=== PATIENT | male | born 1935 | race Caucasian/White ===

== ENCOUNTER → 2017-04-30 06:20 | Outpatient (CLI) | payer MEDICARE, SELFPAY ==
--- NOTE | 2017-04-30 09:31 | STRESSREP ---
Stress Test Report Pharmacologic myocardial perfusion stress test. 82-year-old man with a history of atrial fibrillation. Stress protocol: Resting EKG demonstrates atrial fibrillation with a junctional rhythm rate of 53 bpm. Right bundle branch block is noted. Resting blood pressure is 122/72 minute meters of mercury. 0.4 mg of regadenoson was infused per usual protocol followed by rapid intravenous saline flush injection continuous EKG monitoring was performed the maximum heart rate attained was 67 bpm which was 48% of the maximum predicted heart rate the maximum workload attained was 1 metabolic equivalent. At rest there were no ST or T-wave changes noted suggest abnormal flow reserve at peak infusion no ST or T-wave changes were noted suggest abnormal flow reserve. Patient maintained the right bundle branch block throughout the infusion should. Resting blood pressure is 122/72 final blood pressure 124/60. Myocardial perfusion protocol. 14.5 mCi of technetium 99m sestamibi was injected at rest. 0.4 mg regadenoson was infused per usual protocol peak infusion 44.9 mCi of technetium 99m sestamibi was injected. Stress images were obtained. Stress and rest images were reconstructed and compared in the short axis vertical long and horizontal long axis. Gated images were also obtained pre- Perfusion SPECT analysis: Review of the stress images demonstrate normal uptake of tracer noted in all areas of the myocardium. The resting images also demonstrate normal uptake of tracer noted in all areas of the myocardium. No areas of reversibility are noted suggest ischemia no previous infarct is noted. Gated SPECT analysis: The gated ejection fraction is noted to be 57%. Conclusion: Normal pharmacologic myocardial perfusion stress test. Atrial fibrillation noted with a right bundle branch block. Preserved ejection fraction.
--- NOTE | 2017-04-30 10:00 | CDU_ITS ---
Reason For Study: Carotid bruit Rt. Velocities/BP Lt. Velocities/BP Prox CCA 70.9/11.7 cm/sec. Prox CCA 63.9/11.1 cm/sec. Mid CCA 65.7/16.4 cm/sec. Mid CCA 59.8/14.7 cm/sec. Dist CCA 59.8/13.5 cm/sec. Dist CCA 64.5/15.2 cm/sec. Prox ICA 43.4/9.4 cm/sec. Prox ICA 71.5/12.3 cm/sec. Mid ICA 53.4/14.1 cm/sec. Mid ICA 75.6/17.0 cm/sec. Dist ICA 57.5/14.7 cm/sec. Dist ICA 86.2/18.2 cm/sec. Rt. ICA/CCA = .88. Lt. ICA/CCA = 1.4. Prox ECA 56.3/9.4 cm/sec. Prox ECA 59.8/8.2 cm/sec. Rt. Vert. 38.1/12.3 cm/sec. Lt. Vert. 38.7/11.1 cm/sec. Right Extracranial There is intimal thickening but no significant atherosclerotic plaque noted in the right common carotid artery. There is heterogeneous, irregular atherosclerotic plaque noted in the right internal carotid artery. There is heterogeneous, irregular atherosclerotic plaque noted in the right external carotid artery. Antegrade flow is noted in the right vertebral artery. Left Extracranial There is no significant atherosclerotic plaque noted in the left common carotid artery. There is heterogeneous, irregular atherosclerotic plaque noted in the left internal carotid artery. There is no significant atherosclerotic plaque noted in the left external carotid artery. Antegrade flow is noted in the left vertebral artery. Procedure Carotid Duplex [id number]. Exam performed in department. Interpretation Summary Mild (<50%) stenosis right extracranial internal carotid. Mild (<50%) stenosis left extracranial internal carotid. Flow within the vertebral arteries is antegrade bilaterally. Ordering Physician: Kendra Xiao Referring Physician: Kayleen Meyer M.D. Performed By: Meghann Olvera RVT
== END ==
PROVIDERS: Family Provider Family Medicine; PCP Family Medicine; Visit Provider Physician Assistant Medical
DX: I48.91 Unspecified atrial fibrillation (principal); I45.10 Unspecified right bundle-branch block; R09.89 Other specified symptoms and signs involving the circulatory and respiratory systems; I65.23 Occlusion and stenosis of bilateral carotid arteries; R07.9 Chest pain, unspecified
CPT/HCPCS: 78452; 93017; 93880; A9500; A4216; J2785

== ENCOUNTER → 2017-05-11 15:14 | Outpatient (CLI) | payer MEDICARE, SELFPAY ==
[2017-04-11 10:44] VITALS: BP 128/76; BMI 28.4
[2017-05-11 17:46] LABS: Hemoglobin A1c 6.5 % (4.2-6.3)
[2017-05-11 17:53] LABS: AST(SGOT) 24 U/L (15-37); Alanine Aminotransfer ALT/SGPT 27 U/L (16-61); Albumin, Serum 3.6 g/dL (3.2-5.0); Alkaline Phosphatase 92 U/L (45-117); Anion Gap 9 (5-15); BUN 24 mg/dL (7-18); BUN/Creat Ratio 22.4 RATIO (10-20); Calcium,Total 8.7 mg/dL (8.5-10.1); Chloride 109 mmol/L (98-107); Cholesterol 100 mg/dL (200); Creatinine, Serum 1.07 mg/dL (0.70-1.30); EST Glomerular Filtration Rate 70 mL/min (>60); Est Glom Filt Rate - Afr Amer 85 mL/min (>60); Globulin 3.8 g/dL (2.2-4.2); Glucose 73 mg/dL (74-106); High Density Lipoprotein 27 mg/dL; Potassium 3.3 mmol/L (3.5-5.1); Protein, Total 7.4 g/dL (6.4-8.2); Sodium Level 145 mmol/L (136-145); Triglycerides 108 mg/dL; Very Low Density Lipoprotein 22 mg/dL (5-40)
[2017-05-11 17:59] LABS: Microalbumin,Random Urine 19.8 mg/L (NO RANGE EST.)
== END ==
PROVIDERS: Family Provider Family Medicine; PCP Family Medicine; Visit Provider Family Medicine
DX: I10 Essential (primary) hypertension (principal); E11.9 Type 2 diabetes mellitus without complications
CPT/HCPCS: 36415; 80048; 80061; 80076; 82043; 82570; 83036

== ENCOUNTER → 2017-08-20 13:02 | Outpatient (CLI) | payer MEDICARE, SELFPAY ==
[2017-08-20 14:07] LABS: Absolute Lymphocyte Count 0.88 X10^3/ul (0.83-4.51); Absolute Neutrophil Count 4.5 X10^3/uL (2.0-7.7); Basophil# 0.02 X10^3/uL; Basophil% 0.3 % (0-1); Eosinophil# 0.26 X10^3/uL; Eosinophils% 4.2 % (0-5); Hematocrit 35.9 % (40-54); Lymphocyte # 0.88 X10^3/ul (4.0); Lymphocyte % 14.3 % (19-41); Mean Corp Hgb Conc 33.4 g/gl (32-36); Mean Corpuscular Hgb 30.7 pg (27.0-32.0); Mean Corpuscular Volume 91.8 fL (80-94); Mean Platelet Vol. 12.4 fl (6.2-12.0); Monocyte% 8.1 % (0-10); Neutrophil # 4.47 X10^3/uL (2.7-7.7); Neutrophil % 72.9 % (47-70); Platelet Count 132 K/mm3 (150-450); RBC Distribution Width CV 17.8 % (11.6-14.6); RBC Distribution Width SD 57.9 fl (35.1-43.9); Red Blood Count 3.91 M/mm3 (4.6-6.2); White Blood Count 6.1 K/mm3 (4.4-11.0)
[2017-08-20 14:10] LABS: POSITIVE COUNT NO; POSITIVE DIFFERENTIAL NO; POSITIVE MORPHOLOGY NO
== END ==
PROVIDERS: Family Provider Family Medicine; PCP Family Medicine; Visit Provider Internal Medicine Rheumatology
DX: D64.9 Anemia, unspecified (principal)
CPT/HCPCS: 36415; 85025

== ENCOUNTER → 2017-09-04 09:43 | Outpatient (CLI) | payer MEDICARE, SELFPAY ==
--- NOTE | 2017-09-04 09:43 | DT_ITS ---
This patient was seen during an EMR downtime September 03, 2017 - September 10, 2017. This patient may have a combination of paper and electronic documentation or all paper documentation. All documentation is viewable within the e-chart portion of [facility] for each patient visit.
[2017-09-10 17:02] LABS: Absolute Lymphocyte Count 0.66 X10^3/ul (0.83-4.51); Absolute Neutrophil Count 5.8 X10^3/uL (2.0-7.7); Basophil% 0.3 % (0-1); Eosinophils% 3.2 % (0-5); Hematocrit 36.8 % (40-54); Hemoglobin 11.9 g/dl (13.0-16.5); Lymphocyte # 0.66 X10^3/ul (4.0); Lymphocyte % 9.5 % (19-41); Mean Corp Hgb Conc 32.3 g/gl (32-36); Mean Corpuscular Hgb 30.2 pg (27.0-32.0); Mean Corpuscular Volume 93.4 fL (80-94); Mean Platelet Vol. 11.8 fl (6.2-12.0); Monocyte% 4.3 % (0-10); Neutrophil # 5.75 X10^3/uL (2.7-7.7); Neutrophil % 82.3 % (47-70); POSITIVE COUNT NO; POSITIVE DIFFERENTIAL NO; POSITIVE MORPHOLOGY NO; Platelet Count 139 K/mm3 (150-450); RBC Distribution Width CV 18.3 % (11.6-14.6); RBC Distribution Width SD 59.8 fl (35.1-43.9); Red Blood Count 3.94 M/mm3 (4.6-6.2)
== END ==
PROVIDERS: Family Provider Family Medicine; PCP Family Medicine; Visit Provider Internal Medicine Rheumatology
DX: D69.6 Thrombocytopenia, unspecified (principal)
CPT/HCPCS: 36415; 85025

== ENCOUNTER 2017-10-20 01:14 | Inpatient (IN) | payer MEDICARE, SELFPAY ==
[2017-10-20] VITALS (20 sets, daily range): BP systolic 101–171; BP diastolic 46–68; PULSE 62–88; RESP 18–32; TEMP 36.9–37.9; O2SAT 92–94; BMI 27.0; BMI 26.2
--- NOTE | 2017-10-20 01:32 | RAD_ITS ---
STUDY: X-RAY CHEST REASON FOR EXAM: Male, 82 years old. Cough, shortness of breath and chills since yesterday. TECHNIQUE: PA and lateral views of the chest. COMPARISON: October 20, 2017. FINDINGS: Cardiac monitoring leads are present. The lungs are expanded. There is right basilar airspace consolidation likely representing pneumonia. There is also heterogeneous left basilar airspace consolidation likely representing pneumonia. Bronchovascular markings are mildly prominent in both lungs, greatest at the lung bases. This suggests the possibility of bronchiectasis. There may be small bilateral pleural effusions. There is mild cardiac enlargement. There are calcified mediastinal and hilar lymph nodes. There is prominence of the pulmonary hilar arteries without peripheral pulmonary vascular congestion. There is atherosclerotic calcification of the aortic arch with tortuosity. There are diffuse degenerative changes of the visualized thoracic spine. The bones appear osteopenic. There is decreased height of several thoracic vertebral body suggesting sequela of compression fractures. There are degenerative changes of both shoulders. There is no demonstrated abnormality of the visualized soft tissue structures of the upper abdomen. RAD/Chest PA and Lateral IMPRESSION: 1. Bilateral basilar airspace consolidation, right larger left, likely representing pneumonia. 2. There may be component of bronchiectasis at the lung bases. Electronically Signed: Divine Luo MD at 2:56 EDT , Service support ,
--- NOTE | 2017-10-20 01:32 | EKG12_ITS ---
Test Reason : COUGH Blood Pressure : / mmHG Vent. Rate : 081 BPM Atrial Rate : 097 BPM P-R Int : 000 ms QRS Dur : 166 ms QT Int : 442 ms P-R-T Axes : 000 -37 000 degrees QTc Int : 513 ms Atrial fibrillation Left axis deviation Right bundle branch block Abnormal ECG Confirmed by AARON RODRIGUEZ ([id number]), editor news CAROLYNN CALLEJAS ([id number]) on 10/23/2017 1:32:34 PM Referred By: CATRACHO Confirmed By:AARON RODRIGUEZ
[2017-10-20 01:50] LABS: Absolute Lymphocyte Count 0.79 X10^3/ul (0.83-4.51); Absolute Neutrophil Count 7.1 X10^3/uL (2.0-7.7); Basophil# 0.01 X10^3/uL; Basophil% 0.1 % (0-1); Eosinophil# 0.25 X10^3/uL; Hematocrit 32.8 % (40-54); Hemoglobin 10.9 g/dl (13.0-16.5); Lymphocyte # 0.79 X10^3/ul (4.0); Lymphocyte % 9.6 % (19-41); Mean Corp Hgb Conc 33.2 g/gl (32-36); Mean Corpuscular Hgb 30.2 pg (27.0-32.0); Mean Corpuscular Volume 90.9 fL (80-94); Monocyte# 0.06 X10^3/uL; Monocyte% 0.7 % (0-10); Neutrophil # 7.12 X10^3/uL (2.7-7.7); Neutrophil % 86.5 % (47-70); POSITIVE COUNT NO; POSITIVE DIFFERENTIAL NO; POSITIVE MORPHOLOGY NO; Platelet Count 140 K/mm3 (150-450); RBC Distribution Width CV 17.8 % (11.6-14.6); RBC Distribution Width SD 58.7 fl (35.1-43.9); Red Blood Count 3.61 M/mm3 (4.6-6.2); White Blood Count 8.2 K/mm3 (4.4-11.0)
[2017-10-20] MEDS: Acetaminophen 325 MG Tablet 650 MG PO (01:50)
--- NOTE | 2017-10-20 01:51 | ED.VISSUMM ---
- ER Visit Summary Date of Service: 10/20/17 Chief Complaint: [] Cough History of Present Illness: The patient is a 82 M presents with cough for last 2 days gradual onset intermittent. Occasionally is productive only in the morning. He has occasional chills. Denies any other symptoms. He is not short of breath. He had a cough fit tonight that brought him in. He has had remote aspiration pneumonia. His temperature was 101 time at home. No home treatment. No history of COPD. He is on Coumadin for history of atrial fibrillation. Physical Examination: Vital signs reviewed are temperature 100.3 General: Well-nourished well-developed Head: Normocephalic atraumatic Eyes: Pupils equal round and reactive to light extraocular movements intact ENT: TMs clear no hemotympanum no trauma Neck: Nontender full range of motion Cardiovascular: Regular rate with irregular rhythm no murmurs normal S1-S2 Respiratory: No distress clear to auscultation bilaterally chest nontender Abdomen: Soft nontender nondistended normal bowel sounds no masses Back: Nontender no CVA tenderness Extremities: Nontender active range of motion ?4 extremities no trauma Skin: Normal color no trauma Neuro alert oriented cranial nerves II through XII intact normal strength sensation reflexes Test Results: [] Emergency Department Course and Treatment: [] Patient given oral Tylenol. Lab work chest x-ray and EKG obtained. Lab work shows no significant white count. Hemoglobin 10.9 which is chronic. Positive left shift with the neutrophils 86. Chemistries normal except chloride 108. BUN 23. Troponin is chronically elevated 0.09. Chest x-ray shows a lobar right lower lobe infiltrate. Patient was started on antibiotics and admitted for further evaluation and treatment. I do not think he has severe sepsis or septic shock. Treatment Plan: [] Disposition: [] Impression: [] Community acquired pneumonia Sepsis syndrome This note was generated with [employer] dictation software. It may contain incorrect words, spelling, and punctuation that were not noted in review of the chart prior to signing ED Disposition - Plan for ED Patient: Chief Complaint: Cough Referrals: Kayleen Meyer MD [Primary Care Provider] -
[2017-10-20 01:56] LABS: International Normalized Ratio 2.5; Prothrombin Time (Protime)PT. 26.7 SECONDS (11.7-14.9)
[2017-10-20 02:06] LABS: Anion Gap 6 (5-15); BUN 23 mg/dL (7-18); BUN/Creat Ratio 21.9 RATIO (10-20); Calcium,Total 8.6 mg/dL (8.5-10.1); Chloride 108 mmol/L (98-107); Creatinine, Serum 1.05 mg/dL (0.70-1.30); EST Glomerular Filtration Rate 72 mL/min (>60); Est Glom Filt Rate - Afr Amer 87 mL/min (>60); Estimated Creatinine Clearance 58.51 ml/min; Glucose 263 mg/dL (74-106); Potassium 3.5 mmol/L (3.5-5.1); Sodium Level 141 mmol/L (136-145)
[2017-10-20] MEDS: levoFLOXacin IV 750 MG/150 ML BAG 100 MG IV (02:44)
--- NOTE | 2017-10-20 03:05 | HP.PCM_ITS ---
Problem List (1) CAP (community acquired pneumonia) Status: Acute (2) TIA (transient ischemic attack) Status: Chronic (3) Chronic atrial fibrillation Status: Chronic (4) Benign hypertension Status: Chronic (5) Type II diabetes mellitus Status: Chronic History of Present Illness Date of Admission: 10/20/17 Chief Complaint: CAP The patient is a 82 year old male w/ h/o chronic afib, HTN, DMII, and TIA admitted for CAP. He has been coughing for the past 2-3 days. He has a productive cough. The intensity and frequency of his cough worsened. Nothing appeared to make his cough better or worse. He also has subjective fever / chill. He has been SOB for the past 1 day. SOB is severe and interfered with his ADLs. Past Medical History Past Medical History (Chronic Problems): Chronic Problems (Last Reviewed 09/13/17 @ 11:23 by Aaron Regalado MD) TIA (transient ischemic attack) (Chronic) Rheumatoid arthritis (Chronic) Chronic atrial fibrillation (Chronic) Benign hypertension (Chronic) Type II diabetes mellitus (Chronic) Medical History: Medical History (Last Reviewed 10/20/17 @ 02:57 by Sagar Simpson MD) TIA (transient ischemic attack) (Chronic) G45.9 Rheumatoid arthritis (Chronic) M06.9 Chronic atrial fibrillation (Chronic) I48.2 Benign hypertension (Chronic) I10 Type II diabetes mellitus (Chronic) E11.9 Allergies No Known Allergies Allergy (Verified 10/20/17 01:16) Home Medications: Ambulatory Orders Medication Instructions Recorded Aspirin [Aspirin, Baby] 81 mg PO DAILY 12/31/12 Hydrochlorothiazide 25 mg PO DAILY 12/31/12 Metoprolol Tartrate [Lopressor 50 mg PO BID 12/31/12 (beta judy)] Tamsulosin HCl [Flomax] 0.4 mg PO DAILY 12/31/12 Warfarin Sodium [Coumadin] 3 mg PO DAILY 12/31/12 Amlodipine [Norvasc] 10 mg PO DAILY 09/16/16 Folic Acid 1 mg PO DAILY 09/16/16 Methotrexate 5 tab PO [place] 09/16/16 Lisinopril [Zestril] 40 mg PO DAILY #30 tab 09/20/16 potassium chloride ER 20 mEq 20 meq PO DAILY 90 Days #270 04/11/17 tablet,extended release(part/cryst) furosemide 40 mg tablet 40 mg PO DAILY #90 tab 10/11/17 Glimepiride [Amaryl] 2 mg PO DAILY 10/20/17 Lactobacillus Acidophilus 1 tablet PO DAILY 10/20/17 [Acidophilus] Surgical History: Surgical History (Last Reviewed 10/20/17 @ 02:57 by Sagar Simpson MD) History of knee replacement (Resolved) Z96.659 Hx of hernia repair (Resolved) Z98.890, Z87.19 History of cholecystectomy Onset Date: ~05/2012 Z98.890, Z90.49 Surgical History: cholecystectomy, herniorrhaphy Psychiatric History: No pertinent psych hx Lives: Spouse/ Significant Other Smoking Status: Never smoker Alcohol: None Drugs: None - *Family History Maternal History Items: No pertinent history Paternal History Items: No pertinent history Review of Systems Constitutional: Denies: Chills, Fever, Weight Change Eyes: Denies: Cataracts, Drainage HEENT: Denies: Head Aches, Sinus Congestion, Sinus Drainage Cardiovascular: Denies: Chest Pain, Palpitations Respiratory: Reports: Cough, Sputum production, Wheezing. Denies: Shortness of breath at rest Gastrointestinal: Denies: Abdominal Pain, Nausea, Vomiting Genitourinary: Denies: Dysuria Musculoskeletal: Denies: Joint Pain, Joint Tenderness Skin: Denies: Rash, Wounds Neurological: Denies: Numbness, Tingling, Focal weakness Psychiatric: Denies: Anxiety, Depression, Homicidal Ideations, Suicidal Ideations Hematologic/ Lymphatic: Denies: Easy Bruising, Easy Bleeding VTE Information - Inpt Only VTE Present on Admission: No VTE Mechan Device Prophylaxis: SCD's VTE Pharm Prophylaxis ordered?: Yes Patient Problems: Active and Suspected Problems (Last Reviewed 09/13/17 @ 11:23 by Aaron Regalado MD ) CAP (community acquired pneumonia) (Acute) - Physical Exam General: Alert, Oriented x3, Cooperative HEENT: Atraumatic, PERRLA, EOMI, Normocephalic Neck: Supple, No JVD, Negative Carotid Bruits Lungs: Diminished, Short of Breath, Wheezes Cardiovascular: Regular rate, No murmurs Abdomen: Bowel Sounds Present, Soft, Non Tender Extremities: No edema, Capillary Refill Less than 3 Seconds Skin: No rashes, No breakdown Musculoskeletal: No Tenderness to Palpation of Joints or Extremities Neurological: Cranial nerves II-XII grossly intact Psych/Mental Status: Normal Affect, Appropriate Vital Signs Temp Pulse Resp BP Pulse Ox 99.9 F H 80 23 H 128/68 H 93 10/20/17 02:46 10/20/17 02:46 10/20/17 02:46 10/20/17 02:46 10/20/17 02:46 Oxygen Delivery Method Room Air Weight: 90.5 kg Body Mass Index (BMI) 27.0 Laboratory Tests Past 24 Hrs 10/20/17 10/20/17 10/20/17 01:35 01:35 01:35 WBC 8.2 RBC 3.61 L Hgb 10.9 L Hct 32.8 L MCV 90.9 MCH 30.2 MCHC 33.2 RDW 17.8 H RDW Differential 58.7 H Plt Count 140 L MPV 11.0 Immature Gran % (Auto) 0.100 Neut % (Auto) 86.5 H Lymph % (Auto) 9.6 L [place] % (Auto) 0.7 Eos % (Auto) 3.0 Baso % (Auto) 0.1 Absolute Neuts (auto) 7.1 Absolute Lymphs (auto) 0.79 L Total Counted Not Reportable PT 26.7 H INR 2.5 Sodium 141 Potassium 3.5 Chloride 108 H Carbon Dioxide 27.0 Anion Gap 6 BUN 23 H Creatinine 1.05 Estim Creat Clear Calc 58.51 Est GFR (MDRD) Af Amer 87 Est GFR (MDRD) Non-Af 72 BUN/Creatinine Ratio 21.9 H Glucose 263 H Calcium 8.6 Troponin I 0.093 H Assessment/Plan All Active Problems (Last Reviewed 09/13/17 @ 11:23 by Aaron Regalado MD) CAP (community acquired pneumonia) (Acute) History of knee replacement (Resolved) Hx of hernia repair (Resolved) Aspiration pneumonia (Resolved) Altered mental status (Resolved) 82 year old male w/ h/o chronic afib, HTN, DMII, and TIA admitted for CAP. 1) CAP: Chest xray disclosed right lower lobe infiltrate. Will start ceftriaxone and azithromycin. Cultures pending. 2) Elevated trops: Probably secondary to underlying sepsis. Serial labs. Monitor. 3) Chronic afib: Resume home meds. Monitor. 4) Prophylaxis: SCD / coumadin.
--- NOTE | 2017-10-20 03:30 | NURSING ---
Called ED veterinary virus serum inspector, LeAnn at this time to confirm Pt okay to come to PCU.
[2017-10-20] MEDS: 0.9% Normal Saline 1,000 ML 100 ML IV ×2 (04:21→15:48)
[2017-10-20] MEDS: Ceftriaxone 1 GM/50 ML BAG IV (04:38)
[2017-10-20 05:10] LABS: Absolute Lymphocyte Count 0.61 X10^3/ul (0.83-4.51); Absolute Neutrophil Count 7.2 X10^3/uL (2.0-7.7); Basophil# 0.02 X10^3/uL; Basophil% 0.2 % (0-1); Eosinophil# 0.23 X10^3/uL; Eosinophils% 2.7 % (0-5); Hematocrit 30.2 % (40-54); Hemoglobin 10.2 g/dl (13.0-16.5); Lymphocyte # 0.61 X10^3/ul (4.0); Lymphocyte % 7.1 % (19-41); Mean Corp Hgb Conc 33.8 g/gl (32-36); Mean Corpuscular Hgb 31.1 pg (27.0-32.0); Mean Corpuscular Volume 92.1 fL (80-94); Mean Platelet Vol. 11.2 fl (6.2-12.0); Monocyte# 0.47 X10^3/uL; Monocyte% 5.5 % (0-10); Neutrophil % 84.4 % (47-70); Platelet Count 126 K/mm3 (150-450); RBC Distribution Width CV 17.6 % (11.6-14.6); RBC Distribution Width SD 57.2 fl (35.1-43.9); Red Blood Count 3.28 M/mm3 (4.6-6.2); White Blood Count 8.5 K/mm3 (4.4-11.0)
[2017-10-20 05:22] LABS: POSITIVE COUNT NO; POSITIVE DIFFERENTIAL NO
[2017-10-20 05:37] LABS: Anion Gap 8 (5-15); BUN 21 mg/dL (7-18); BUN/Creat Ratio 20.2 RATIO (10-20); Calcium,Total 8.2 mg/dL (8.5-10.1); Chloride 109 mmol/L (98-107); Creatinine, Serum 1.04 mg/dL (0.70-1.30); EST Glomerular Filtration Rate 72 mL/min (>60); Est Glom Filt Rate - Afr Amer 88 mL/min (>60); Estimated Creatinine Clearance 59.07 ml/min; Glucose 229 mg/dL (74-106); Potassium 3.4 mmol/L (3.5-5.1); Sodium Level 142 mmol/L (136-145)
[2017-10-20] MEDS: Ipratropium/Albuterol Sulfate 3 ML AMPUL.NEB INHALATION ×3 (06:45→20:16)
[2017-10-20 07:05] LABS: Color, Urine Yellow (Yellow); Glucose, Dipstick 250 mg/dl (Normal); Ketone-Dipstick Negative (Negative); Leukocyte Esterase-Dipstick Negative /ul (Negative); Nitrite-Dipstick Negative (Negative); Occult Blood-Urine Negative /ul (Negative); Protein-Dipstick 15 mg/dl (Negative); Urine Bilirubin Dipstick Negative (Negative); Urine Clarity Clear (Clear); Urine Urobilinogen 1 mg/dl (Normal); Urine pH 6.5 (5.0 - 8.0)
[2017-10-20] MEDS: Aspirin 81 MG TAB.CHEW PO (07:27)
[2017-10-20] MEDS: Glimepiride 2 MG Tablet PO (07:27)
[2017-10-20] MEDS: Folic Acid 1 MG Tablet PO (07:27)
[2017-10-20] MEDS: Tamsulosin HCl 0.4 MG Capsule PO (08:21)
[2017-10-20] MEDS: Lisinopril 40 MG Tablet PO (08:21)
[2017-10-20] MEDS: hydroCHLOROthiazide 25 MG Tablet PO (08:21)
[2017-10-20] MEDS: amLODIPine 10 MG Tablet PO (08:21)
[2017-10-20] MEDS: Metoprolol Tartrate 50 MG Tablet PO ×2 (08:22→22:12)
--- NOTE | 2017-10-20 11:35 | CASEMGMT ---
See RN CM Assessment Link. DC Plan: Home. -Pt states he is independent, drives, does not use DME @ home. No needs identified. Elmer WOODALLN RN ACM
--- NOTE | 2017-10-20 15:03 | PN_ITS ---
<Christina Jones - Last Filed: 10/20/17 15:03> Patient Problems: Active and Suspected Problems (Last Reviewed 10/20/17 @ 02:57 by Sagar Simpson MD) CAP (community acquired pneumonia) (Acute) Subjective: Patient seen and examined. Resting comfortably in bed. No acute distress. Complains of fever, chills overnight. Intermittent productive cough with white sputum. Shortness of breath improving. - Physical Exam General: Alert, Oriented x3, Cooperative, No apparent distress HEENT: Atraumatic, PERRLA, EOMI, Normocephalic Oral: Moist Mucosa Neck: Supple, No JVD, Negative Carotid Bruits Lungs: Diminished, Wheezes Cardiovascular: Regular rate, Regular Rhythm, Normal S1, Normal S2, No murmurs Abdomen: Bowel Sounds Present, Soft, Non Tender, Non-Distended Extremities: No clubbing, No cyanosis, No edema, Capillary Refill Less than 3 Seconds Skin: No rashes, No breakdown Musculoskeletal: No Tenderness to Palpation of Joints or Extremities Neurological: Cranial nerves II-XII grossly intact, Neuro grossly intact Psych/Mental Status: Normal Affect, Appropriate Vital Signs Temp Pulse Resp BP Pulse Ox 98.4 F 68 20 H 115/46 L 94 10/20/17 09:50 10/20/17 13:12 10/20/17 13:12 10/20/17 09:50 10/20/17 09:50 Oxygen Delivery Method Room Air Weight: 193 lb 5.526 oz Body Mass Index (BMI) 26.2 Intake and Output for Last 24 Hours 10/18/17 10/19/17 10/20/17 23:59 23:59 23:59 Intake Total 1268 / 1268 Balance 1268 / 1268 Microbiology Past 72 Hours 10/20/17 06:10 Legionella Antigen - Final Urine, Random 10/20/17 06:10 Streptococcus pneumoniae Antigen (M - Final Interface Orders 10/20/17 04:55 Influenza Types A,B Direct FA (DANAE) - Final Mucosa - Nasopharyngeal Laboratory Tests Past 24 Hrs 10/20/17 10/20/17 10/20/17 04:50 04:50 04:50 WBC 8.5 RBC 3.28 L Hgb 10.2 L Hct 30.2 L MCV 92.1 MCH 31.1 MCHC 33.8 RDW 17.6 H RDW Differential 57.2 H Plt Count 126 L MPV 11.2 Immature Gran % (Auto) 0.100 Neut % (Auto) 84.4 H Lymph % (Auto) 7.1 L [place] % (Auto) 5.5 Eos % (Auto) 2.7 Baso % (Auto) 0.2 Absolute Neuts (auto) 7.2 Absolute Lymphs (auto) 0.61 L Total Counted Not Reportable Sodium 142 Potassium 3.4 L Chloride 109 H Carbon Dioxide 25.0 Anion Gap 8 BUN 21 H Creatinine 1.04 Estim Creat Clear Calc 59.07 Est GFR (MDRD) Af Amer 88 Est GFR (MDRD) Non-Af 72 BUN/Creatinine Ratio 20.2 H Glucose 229 H Calcium 8.2 L Troponin I 0.092 H Urine Color Urine Clarity Urine pH Ur Specific [place] Urine Protein Urine Glucose (UA) Urine Ketones Urine Occult Blood Urine Nitrite Urine Bilirubin Urine Urobilinogen Ur Leukocyte Esterase 10/20/17 10/20/17 06:10 07:50 WBC RBC Hgb Hct MCV MCH MCHC RDW RDW Differential Plt Count MPV Immature Gran % (Auto) Neut % (Auto) Lymph % (Auto) [place] % (Auto) Eos % (Auto) Baso % (Auto) Absolute Neuts (auto) Absolute Lymphs (auto) Total Counted Sodium Potassium Chloride Carbon Dioxide Anion Gap BUN Creatinine Estim Creat Clear Calc Est GFR (MDRD) Af Amer Est GFR (MDRD) Non-Af BUN/Creatinine Ratio Glucose Calcium Troponin I 0.098 H Urine Color Yellow Urine Clarity Clear Urine pH 6.5 Ur Specific [place] 1.010 Urine Protein 15 H Urine Glucose (UA) 250 H Urine Ketones Negative Urine Occult Blood Negative Urine Nitrite Negative Urine Bilirubin Negative Urine Urobilinogen 1 H Ur Leukocyte Esterase Negative Medical Necessity - Tobacco Use Smoking Status: Never smoker Assessment/Plan All Active Problems (Last Reviewed 10/20/17 @ 02:57 by Sagar Simpson MD) CAP (community acquired pneumonia) (Acute) History of knee replacement (Resolved) Hx of hernia repair (Resolved) Aspiration pneumonia (Resolved) Altered mental status (Resolved) 1. Acute community-acquired right lower lobe pneumonia-chest x-ray on admission demonstrated right lower lobe pneumonia. Urine negative for strep and Legionella. Patient has not been found to be hypoxic. Send sputum for culture. Blood cultures pending. Continue albuterol and DuoNeb aerosol. Continue IV Rocephin and azithromycin. 2. Elevated troponin-suspect secondary to #1. Patient denies chest pain. EKG without acute changes. Patient has a history of elevated troponin in the past. Stress test in April without evidence of ischemia. 3. Chronic atrial fibrillation-rate controlled. Continue metoprolol, Coumadin. 4. Hypertension-stable, continue home regimen including hydrochlorothiazide, lisinopril, metoprolol. 5. Type 2 diabetes mellitus-continue home Amaryl regimen. Accu-Cheks before meals at bedtime with sliding scale insulin. 6. History of TIA-continue aspirin. 7. BPH-continue home Flomax regimen. 8. Rheumatoid arthritis-continue home methotrexate regimen. DVT prophylaxis-Coumadin This patient was seen by NIXON Perez under the supervision of Dr. Rodriguez. <Janna Rodriguez - Last Filed: 10/20/17 17:10> - Physical Exam Vital Signs Temp Pulse Resp BP Pulse Ox 98.4 F 68 20 H 115/46 L 94 10/20/17 09:50 10/20/17 13:12 10/20/17 13:12 10/20/17 09:50 10/20/17 09:50 Oxygen Delivery Method Room Air Weight: 87.7 kg Body Mass Index (BMI) 26.2 Intake and Output for Last 24 Hours 10/18/17 10/19/17 10/20/17 23:59 23:59 23:59 Intake Total 1268 / 1268 Balance 1268 / 1268 Microbiology Past 72 Hours 10/20/17 06:10 Legionella Antigen - Final Urine, Random 10/20/17 06:10 Streptococcus pneumoniae Antigen (M - Final Interface Orders 10/20/17 04:55 Influenza Types A,B Direct FA (DANAE) - Final Mucosa - Nasopharyngeal Laboratory Tests Past 24 Hrs 10/20/17 10/20/17 10/20/17 04:50 04:50 04:50 WBC 8.5 RBC 3.28 L Hgb 10.2 L Hct 30.2 L MCV 92.1 MCH 31.1 MCHC 33.8 RDW 17.6 H RDW Differential 57.2 H Plt Count 126 L MPV 11.2 Immature Gran % (Auto) 0.100 Neut % (Auto) 84.4 H Lymph % (Auto) 7.1 L [place] % (Auto) 5.5 Eos % (Auto) 2.7 Baso % (Auto) 0.2 Absolute Neuts (auto) 7.2 Absolute Lymphs (auto) 0.61 L Total Counted Not Reportable Sodium 142 Potassium 3.4 L Chloride 109 H Carbon Dioxide 25.0 Anion Gap 8 BUN 21 H Creatinine 1.04 Estim Creat Clear Calc 59.07 Est GFR (MDRD) Af Amer 88 Est GFR (MDRD) Non-Af 72 BUN/Creatinine Ratio 20.2 H Glucose 229 H Calcium 8.2 L Troponin I 0.092 H Urine Color Urine Clarity Urine pH Ur Specific [place] Urine Protein Urine Glucose (UA) Urine Ketones Urine Occult Blood Urine Nitrite Urine Bilirubin Urine Urobilinogen Ur Leukocyte Esterase 10/20/17 10/20/17 06:10 07:50 WBC RBC Hgb Hct MCV MCH MCHC RDW RDW Differential Plt Count MPV Immature Gran % (Auto) Neut % (Auto) Lymph % (Auto) [place] % (Auto) Eos % (Auto) Baso % (Auto) Absolute Neuts (auto) Absolute Lymphs (auto) Total Counted Sodium Potassium Chloride Carbon Dioxide Anion Gap BUN Creatinine Estim Creat Clear Calc Est GFR (MDRD) Af Amer Est GFR (MDRD) Non-Af BUN/Creatinine Ratio Glucose Calcium Troponin I 0.098 H Urine Color Yellow Urine Clarity Clear Urine pH 6.5 Ur Specific [place] 1.010 Urine Protein 15 H Urine Glucose (UA) 250 H Urine Ketones Negative Urine Occult Blood Negative Urine Nitrite Negative Urine Bilirubin Negative Urine Urobilinogen 1 H Ur Leukocyte Esterase Negative Assessment/Plan Patient was seen and examined independently. I agree with the interval history , physical exam and assessment and plan as documented by nurse practitioner, Christina Jones. Feels improved, still coughing. Not on oxygen. Denies any fever or chills, chest pain or dizziness. Admitted less than 24 hours ago. Vitals are stable, labs are unremarkable except for hypokalemia and elevated troponin, chest x-ray shows pneumonia Physical exam shows bilateral diminished lung sounds, few crackles more on the right lower lung zones\ We will continue with IV ceftriaxone and azithromycin for now, continue to monitor patient Elevated troponins are secondary to demand ischemia, will keep trending troponins x 2 Will replace potassium; already on 20mg po daily. Code Visit Inpatient E&M: 93726 Subs Hosp L2
--- NOTE | 2017-10-20 15:54 | EKG12_ITS ---
Test Reason : CP Blood Pressure : / mmHG Vent. Rate : 066 BPM Atrial Rate : 068 BPM P-R Int : 000 ms QRS Dur : 168 ms QT Int : 484 ms P-R-T Axes : 000 -32 -16 degrees QTc Int : 507 ms Atrial fibrillation with premature ventricular or aberrantly conducted complexes Left axis deviation Right bundle branch block Abnormal ECG Confirmed by SHIVANI BARRETT, ARTHUR ([id number]), sound editor CAROLYNN CALLEJAS ([id number]) on 10/23/2017 2:30:29 PM Referred By: MERARI Confirmed By:ARTHUR PARRISH MD
[2017-10-20 16:38] LABS: Magnesium 1.9 mg/dL (1.6-2.6)
[2017-10-20 16:56] LABS: Bedside Glucose 136 mg/dL (70-110)
[2017-10-20] MEDS: Insulin Lispro 100 UNIT/ML INSULN.PEN SC (22:25)
[2017-10-20 23:16] LABS: Bedside Glucose 154 mg/dL (70-110)
[2017-10-21] VITALS (24 sets, daily range): BP systolic 126–168; BP diastolic 64–114; PULSE 71–104; RESP 17–32; TEMP 36.3–37.1; O2SAT 89–94
[2017-10-21] MEDS: Ipratropium/Albuterol Sulfate 3 ML AMPUL.NEB INHALATION ×4 (00:44→19:20)
[2017-10-21] MEDS: 0.9% Normal Saline 1,000 ML 100 ML IV ×2 (01:47→18:09)
[2017-10-21 06:06] LABS: Hematocrit 31.8 % (40-54); Hemoglobin 10.6 g/dl (13.0-16.5); Mean Corp Hgb Conc 33.3 g/gl (32-36); Mean Corpuscular Hgb 30.5 pg (27.0-32.0); Mean Corpuscular Volume 91.6 fL (80-94); Mean Platelet Vol. 12.1 fl (6.2-12.0); Platelet Count 133 K/mm3 (150-450); RBC Distribution Width CV 17.9 % (11.6-14.6); RBC Distribution Width SD 57.7 fl (35.1-43.9); Red Blood Count 3.47 M/mm3 (4.6-6.2); White Blood Count 7.2 K/mm3 (4.4-11.0)
[2017-10-21 06:09] LABS: International Normalized Ratio 2.6; Prothrombin Time (Protime)PT. 28.1 SECONDS (11.7-14.9)
[2017-10-21 06:11] LABS: Scan Indicated on CBC? Y/N NO
[2017-10-21 06:24] LABS: Anion Gap 7 (5-15); BUN 14 mg/dL (7-18); BUN/Creat Ratio 15.6 RATIO (10-20); Calcium,Total 7.9 mg/dL (8.5-10.1); Chloride 113 mmol/L (98-107); EST Glomerular Filtration Rate 86 mL/min (>60); Est Glom Filt Rate - Afr Amer 104 mL/min (>60); Estimated Creatinine Clearance 68.26 ml/min; Glucose 176 mg/dL (74-106); Potassium 3.6 mmol/L (3.5-5.1); Sodium Level 143 mmol/L (136-145)
[2017-10-21 07:01] LABS: Bedside Glucose 212 mg/dL (70-110)
[2017-10-21] MEDS: Glimepiride 2 MG Tablet PO (08:31)
[2017-10-21] MEDS: Folic Acid 1 MG Tablet PO (08:32)
[2017-10-21] MEDS: Insulin Lispro 100 UNIT/ML INSULN.PEN SC ×4 (08:32→21:53)
[2017-10-21] MEDS: Aspirin 81 MG TAB.CHEW PO (08:32)
--- NOTE | 2017-10-21 10:07 | DCINST_ITS ---
- Discharge Diagnoses Current Active Problems: Current Active and Chronic Problems (Last Reviewed 10/20/17 @ 02:57 by Sagar Simpson MD) CAP (community acquired pneumonia) (Acute) You will use the following diet at home:: Cardiac Discharge Activity: Return to Normal Activity Call your doctor if you observe: Shortness of breath, Dizziness, Fainting spells , Chest pain Allergies/Adverse Reactions: Allergies No Known Allergies Allergy (Verified 10/20/17 03:53) Medications to take at Discharge Aspirin [Aspirin, Baby] 81 mg PO DAILY 12/31/12 Hydrochlorothiazide 25 mg PO DAILY 12/31/12 Metoprolol Tartrate [Lopressor (beta judy)] 50 mg PO BID 12/31/12 Tamsulosin HCl [Flomax] 0.4 mg PO DAILY 12/31/12 Warfarin Sodium [Coumadin] 3 mg PO DAILY 12/31/12 Amlodipine [Norvasc] 10 mg PO DAILY 09/16/16 Folic Acid 1 mg PO DAILY 09/16/16 Methotrexate 5 tab PO [place] 09/16/16 Lisinopril [Zestril] 40 mg PO DAILY #30 tab 09/20/16 potassium chloride ER 20 mEq tablet,extended release(part/cryst) 20 meq PO DAILY 90 Days #270 04/11/17 furosemide 40 mg tablet 40 mg PO DAILY #90 tab 10/11/17 Glimepiride [Amaryl] 2 mg PO DAILY 10/20/17 Lactobacillus Acidophilus [Acidophilus] 1 tablet PO DAILY 10/20/17 Azithromycin 500 mg PO DAILY #3 tab 10/21/17 Cefdinir [Omnicef [equiv]] 300 mg PO Q12H 8 Days #16 cap 10/21/17 The following prescriptions were given: Azithromycin 500 mg PO DAILY #3 tab Cefdinir [Omnicef [equiv]] 300 mg PO Q12H 8 Days #16 cap Primary Care Physician: Kayleen Meyer MD [Primary Care Provider] - Please follow up with your Primary Care Physician in: 1 Week Test Results: Test results from this visit will be discussed in further detail at your follow- up appointment, if applicable. Proposed Discharge Date: 10/21/17
--- NOTE | 2017-10-21 10:09 | PCM.DC.SUM ---
<Christina Jones - Last Filed: 10/21/17 11:04> Discharge Date and Diagnosis Date of Admission: 10/20/17 Date of Discharge: 10/21/17 - Primary Discharge Diagnosis Active and Suspected Problems (Last Reviewed 10/20/17 @ 02:57 by Sagar Simpson MD) 1. Acute community-acquired right lower lobe pneumonia 2. Elevated troponin secondary to demand ischemia - Secondary Discharge Diagnosis Chronic Problems (Last Reviewed 10/20/17 @ 02:57 by Sagar Simpson MD) TIA (transient ischemic attack) (Chronic) Rheumatoid arthritis (Chronic) Chronic atrial fibrillation (Chronic) Benign hypertension (Chronic) Type II diabetes mellitus (Chronic) Hospital Course and Treatment Imaging Results: Diagnostic Data Chest X-Ray 10/20/17 01:32 IMPRESSION: 1. Bilateral basilar airspace consolidation, right larger left, likely representing pneumonia. 2. There may be component of bronchiectasis at the lung bases. Electronically Signed: Divine Luo MD at 2:56 EDT , Service support , Operations: None Procedures: None Summary of Care Provided: Patient is an 82-year-old male admitted 10/20/2017 due to shortness of breath, cough. He has a past medical history of rheumatoid arthritis, chronic atrial fibrillation, hypertension, hyperlipidemia, history of TIA, BPH. 1. Acute community-acquired right lower lobe pneumonia-chest x-ray on admission demonstrated right lower lobe pneumonia. Urine negative for strep and Legionella. Patient has not been found to be hypoxic. Patient will be discharged on azithromycin 500 mg daily to complete 5 days. Cefdinir 300 mg twice daily for 8 days. Follow-up with primary care physician in 1 week. 2. Elevated troponin-suspect demand ischemia secondary to #1. Patient denies chest pain. EKG without acute changes. Patient has a history of elevated troponin in the past. Stress test in April without evidence of ischemia. Patient with frequent PVCs on the monitor. Magnesium 1.9. Received 2 g magnesium ?1. Follow-up with Dr. Regalado or PA within 1 week. 3. Chronic atrial fibrillation-rate controlled. Continue metoprolol, Coumadin. 4. Hypertension-stable, continue home regimen including furosemide, hydrochlorothiazide, lisinopril, metoprolol. 5. Type 2 diabetes mellitus-continue home Amaryl regimen. 6. History of TIA-continue aspirin. 7. BPH-continue home Flomax regimen. 8. Rheumatoid arthritis-continue home methotrexate regimen. General: Alert, Oriented x3, Cooperative, No apparent distress HEENT: Atraumatic, PERRLA, EOMI, Normocephalic Oral: Moist Mucosa Neck: Supple, No JVD, Negative Carotid Bruits Lungs: Diminished, clear to auscultation Cardiovascular: Regular rate, Regular Rhythm, Normal S1, Normal S2, No murmurs Abdomen: Bowel Sounds Present, Soft, Non Tender, Non-Distended Extremities: No clubbing, No cyanosis, No edema, Capillary Refill Less than 3 Seconds Skin: No rashes, No breakdown Musculoskeletal: No Tenderness to Palpation of Joints or Extremities Neurological: Cranial nerves II-XII grossly intact, Neuro grossly intact Psych/Mental Status: Normal Affect, Appropriate Patient seen exam prior to discharge. Physical assessment as noted above. Patient is stable for discharge home with the follow-up recommendations as noted above. This patient was seen by NIXON Perez under the supervision of Dr. Rodriguez. Discharge Diet: Low fat/ Low Cholesterol Discharge Activity: Return to Normal Activity Call your doctor if you observe: Shortness of breath, Dizziness, Fainting spells, Chest pain Home Medications: Medications to take at Discharge Aspirin [Aspirin, Baby] 81 mg PO DAILY 12/31/12 Hydrochlorothiazide 25 mg PO DAILY 12/31/12 Metoprolol Tartrate [Lopressor (beta judy)] 50 mg PO BID 12/31/12 Tamsulosin HCl [Flomax] 0.4 mg PO DAILY 12/31/12 Warfarin Sodium [Coumadin] 3 mg PO DAILY 12/31/12 Amlodipine [Norvasc] 10 mg PO DAILY 09/16/16 Folic Acid 1 mg PO DAILY 09/16/16 Methotrexate 5 tab PO [place] 09/16/16 Lisinopril [Zestril] 40 mg PO DAILY #30 tab 09/20/16 potassium chloride ER 20 mEq tablet,extended release(part/cryst) 20 meq PO DAILY 90 Days #270 04/11/17 furosemide 40 mg tablet 40 mg PO DAILY #90 tab 10/11/17 Glimepiride [Amaryl] 2 mg PO DAILY 10/20/17 Lactobacillus Acidophilus [Acidophilus] 1 tablet PO DAILY 10/20/17 Azithromycin 500 mg PO DAILY #3 tab 10/21/17 Cefdinir [Omnicef [equiv]] 300 mg PO Q12H 8 Days #16 cap 10/21/17 Following Prescrptions Were Given to Patient: Azithromycin 500 mg PO DAILY #3 tab Cefdinir [Omnicef [equiv]] 300 mg PO Q12H 8 Days #16 cap Primary Care Physician: Kayleen Meyer MD [Primary Care Provider] - Please follow up with your Primary Care Physician in: 1 Week Please Follow Up With: Aaron Regalado MD - May see [employer]/PA When: Within 1 week Disposition: Home Minutes spent on discharge:: 35 Patient Condition:: Stable Medical Necessity - Tobacco Use Smoking Status: Never smoker Meaningful Use Info Meaningful Use Diagnoses (Choose all that apply): None applicable <MichaelGrand Bay - Last Filed: 10/21/17 17:11> Discharge Date and Diagnosis - Secondary Discharge Diagnosis Chronic Problems (Last Reviewed 10/20/17 @ 02:57 by Sagar Simpson MD) TIA (transient ischemic attack) (Chronic) Rheumatoid arthritis (Chronic) Chronic atrial fibrillation (Chronic) Benign hypertension (Chronic) Type II diabetes mellitus (Chronic) Hospital Course and Treatment Summary of Care Provided: The patient is a 82 year old M [] Code Visit Inpatient E&M: 11050 Disch Hosp
--- NOTE | 2017-10-21 10:14 | DS.PCM_ITS ---
Addendum entered and electronically signed by NIXON Perez 10/21/17 11:05: Code Visit Recommend repeat CXR in 6-8 weeks. If PNA persistent, recommend CTA chest. Original Note: <Christina Jones - Last Filed: 10/21/17 11:04> Discharge Date and Diagnosis Date of Admission: 10/20/17 Date of Discharge: 10/21/17 - Primary Discharge Diagnosis Active and Suspected Problems (Last Reviewed 10/20/17 @ 02:57 by Sagar Simpson MD) 1. Acute community-acquired right lower lobe pneumonia 2. Elevated troponin secondary to demand ischemia - Secondary Discharge Diagnosis Chronic Problems (Last Reviewed 10/20/17 @ 02:57 by Sagar Simpson MD) TIA (transient ischemic attack) (Chronic) Rheumatoid arthritis (Chronic) Chronic atrial fibrillation (Chronic) Benign hypertension (Chronic) Type II diabetes mellitus (Chronic) Hospital Course and Treatment Imaging Results: Diagnostic Data Chest X-Ray 10/20/17 01:32 IMPRESSION: 1. Bilateral basilar airspace consolidation, right larger left, likely representing pneumonia. 2. There may be component of bronchiectasis at the lung bases. Electronically Signed: Divine Luo MD at 2:56 EDT , Service support , Operations: None Procedures: None Summary of Care Provided: Patient is an 82-year-old male admitted 10/20/2017 due to shortness of breath, cough. He has a past medical history of rheumatoid arthritis, chronic atrial fibrillation, hypertension, hyperlipidemia, history of TIA, BPH. 1. Acute community-acquired right lower lobe pneumonia-chest x-ray on admission demonstrated right lower lobe pneumonia. Urine negative for strep and Legionella. Patient has not been found to be hypoxic. Patient will be discharged on azithromycin 500 mg daily to complete 5 days. Cefdinir 300 mg twice daily for 8 days. Follow-up with primary care physician in 1 week. 2. Elevated troponin-suspect demand ischemia secondary to #1. Patient denies chest pain. EKG without acute changes. Patient has a history of elevated troponin in the past. Stress test in April without evidence of ischemia. Patient with frequent PVCs on the monitor. Magnesium 1.9. Received 2 g magnesium ?1. Follow-up with Dr. Regalado or [place] within 1 week. 3. Chronic atrial fibrillation-rate controlled. Continue metoprolol, Coumadin. 4. Hypertension-stable, continue home regimen including furosemide, hydrochlorothiazide, lisinopril, metoprolol. 5. Type 2 diabetes mellitus-continue home Amaryl regimen. 6. History of TIA-continue aspirin. 7. BPH-continue home Flomax regimen. 8. Rheumatoid arthritis-continue home methotrexate regimen. General: Alert, Oriented x3, Cooperative, No apparent distress HEENT: Atraumatic, PERRLA, EOMI, Normocephalic Oral: Moist Mucosa Neck: Supple, No JVD, Negative Carotid Bruits Lungs: Diminished, clear to auscultation Cardiovascular: Regular rate, Regular Rhythm, Normal S1, Normal S2, No murmurs Abdomen: Bowel Sounds Present, Soft, Non Tender, Non-Distended Extremities: No clubbing, No cyanosis, No edema, Capillary Refill Less than 3 Seconds Skin: No rashes, No breakdown Musculoskeletal: No Tenderness to Palpation of Joints or Extremities Neurological: Cranial nerves II-XII grossly intact, Neuro grossly intact Psych/Mental Status: Normal Affect, Appropriate Patient seen exam prior to discharge. Physical assessment as noted above. Patient is stable for discharge home with the follow-up recommendations as noted above. This patient was seen by NIXON Perez under the supervision of Dr. Rodriguez. Discharge Diet: Low fat/ Low Cholesterol Discharge Activity: Return to Normal Activity Call your doctor if you observe: Shortness of breath, Dizziness, Fainting spells , Chest pain Home Medications: Medications to take at Discharge Aspirin [Aspirin, Baby] 81 mg PO DAILY 12/31/12 Hydrochlorothiazide 25 mg PO DAILY 12/31/12 Metoprolol Tartrate [Lopressor (beta judy)] 50 mg PO BID 12/31/12 Tamsulosin HCl [Flomax] 0.4 mg PO DAILY 12/31/12 Warfarin Sodium [Coumadin] 3 mg PO DAILY 12/31/12 Amlodipine [Norvasc] 10 mg PO DAILY 09/16/16 Folic Acid 1 mg PO DAILY 09/16/16 Methotrexate 5 tab PO [place] 09/16/16 Lisinopril [Zestril] 40 mg PO DAILY #30 tab 09/20/16 potassium chloride ER 20 mEq tablet,extended release(part/cryst) 20 meq PO DAILY 90 Days #270 04/11/17 furosemide 40 mg tablet 40 mg PO DAILY #90 tab 10/11/17 Glimepiride [Amaryl] 2 mg PO DAILY 10/20/17 Lactobacillus Acidophilus [Acidophilus] 1 tablet PO DAILY 10/20/17 Azithromycin 500 mg PO DAILY #3 tab 10/21/17 Cefdinir [Omnicef [equiv]] 300 mg PO Q12H 8 Days #16 cap 10/21/17 Following Prescrptions Were Given to Patient: Azithromycin 500 mg PO DAILY #3 tab Cefdinir [Omnicef [equiv]] 300 mg PO Q12H 8 Days #16 cap Primary Care Physician: Kayleen Meyer MD [Primary Care Provider] - Please follow up with your Primary Care Physician in: 1 Week Please Follow Up With: Aaron Regalado MD - May see [employer]/PA When: Within 1 week Disposition: Home Minutes spent on discharge:: 35 Patient Condition:: Stable Medical Necessity - Tobacco Use Smoking Status: Never smoker Meaningful Use Info Meaningful Use Diagnoses (Choose all that apply): None applicable <Janna Rodriguez - Last Filed: 10/21/17 17:11> Discharge Date and Diagnosis - Secondary Discharge Diagnosis Chronic Problems (Last Reviewed 10/20/17 @ 02:57 by Sagar Simpson MD) TIA (transient ischemic attack) (Chronic) Rheumatoid arthritis (Chronic) Chronic atrial fibrillation (Chronic) Benign hypertension (Chronic) Type II diabetes mellitus (Chronic) Hospital Course and Treatment Summary of Care Provided: The patient is a 82 year old M [] Code Visit Inpatient E&M: 71271 Disch Hosp
[2017-10-21] MEDS: Metoprolol Tartrate 50 MG Tablet PO ×2 (10:20→21:52)
[2017-10-21] MEDS: Tamsulosin HCl 0.4 MG Capsule PO (10:20)
[2017-10-21] MEDS: hydroCHLOROthiazide 25 MG Tablet PO (10:20)
[2017-10-21] MEDS: Lisinopril 40 MG Tablet PO (10:21)
[2017-10-21] MEDS: amLODIPine 10 MG Tablet PO (10:21)
[2017-10-21] MEDS: Methotrexate 2.5 MG Tablet 12.5 MG PO (10:22)
[2017-10-21 11:20] LABS: Bedside Glucose 200 mg/dL (70-110)
--- NOTE | 2017-10-21 14:01 | PCM.PROGNOTE ---
<Christina Jones - Last Filed: 10/21/17 14:44> Subjective: Patient seen and examined. Denies further shortness of breath. Denies chest pain, palpitations. No other current complaints. - Physical Exam General: Alert, Oriented x3, Cooperative, No apparent distress HEENT: Atraumatic, PERRLA, EOMI, Normocephalic Neck: Supple, No JVD, Negative Carotid Bruits Lungs: Clear to auscultation, Diminished Cardiovascular: - - Atrial fibrillation, rate controlled Abdomen: Bowel Sounds Present, Soft, Non Tender, Non-Distended Extremities: No clubbing, No cyanosis, No edema Skin: No rashes, No breakdown Musculoskeletal: No Tenderness to Palpation of Joints or Extremities Neurological: Cranial nerves II-XII grossly intact, Neuro grossly intact Psych/Mental Status: Normal Affect, Appropriate Vital Signs Temp Pulse Resp BP Pulse Ox 97.3 F L 75 21 H 157/76 H 93 10/21/17 10:20 10/21/17 12:39 10/21/17 12:39 10/21/17 10:20 10/21/17 10:20 Oxygen Delivery Method Room Air Weight: 193 lb 5.526 oz Body Mass Index (BMI) 26.2 Intake and Output for Last 24 Hours 10/19/17 10/20/17 10/21/17 23:59 23:59 23:59 Intake Total 2838 / 2838 1545 / 1545 Output Total 300 / 300 Balance 2838 / 2838 1245 / 1245 Microbiology Past 72 Hours 10/20/17 06:10 Legionella Antigen - Final Urine, Random 10/20/17 06:10 Streptococcus pneumoniae Antigen (M - Final Interface Orders 10/20/17 04:55 Influenza Types A,B Direct FA (DANAE) - Final Mucosa - Nasopharyngeal Laboratory Tests Past 24 Hrs 10/20/17 10/20/17 10/21/17 16:10 16:10 05:10 WBC 7.2 RBC 3.47 L Hgb 10.6 L Hct 31.8 L MCV 91.6 MCH 30.5 MCHC 33.3 RDW 17.9 H RDW Differential 57.7 H Plt Count 133 L MPV 12.1 H PT INR Sodium Potassium Chloride Carbon Dioxide Anion Gap BUN Creatinine Estim Creat Clear Calc Est GFR (MDRD) Af Amer Est GFR (MDRD) Non-Af BUN/Creatinine Ratio Glucose Calcium Magnesium 1.9 Troponin I 0.086 H 10/21/17 10/21/17 05:10 05:10 WBC RBC Hgb Hct MCV MCH MCHC RDW RDW Differential Plt Count MPV PT 28.1 H INR 2.6 Sodium 143 Potassium 3.6 Chloride 113 H Carbon Dioxide 23.0 Anion Gap 7 BUN 14 Creatinine 0.90 Estim Creat Clear Calc 68.26 Est GFR (MDRD) Af Amer 104 Est GFR (MDRD) Non-Af 86 BUN/Creatinine Ratio 15.6 Glucose 176 H Calcium 7.9 L Magnesium Troponin I POC Glucose 10/21/17 10/21/17 10/20/17 11:14 06:52 22:16 POC Glucose 200 H 212 H 154 H 10/20/17 16:46 POC Glucose 136 H Medical Necessity - Tobacco Use Smoking Status: Never smoker Assessment/Plan All Active Problems (Last Reviewed 10/20/17 @ 02:57 by Sagar Simpson MD) CAP (community acquired pneumonia) (Acute) History of knee replacement (Resolved) Hx of hernia repair (Resolved) Aspiration pneumonia (Resolved) Altered mental status (Resolved) Patient is an 82-year-old male admitted 10/20/2017 due to shortness of breath, cough. He has a past medical history of rheumatoid arthritis, chronic atrial fibrillation, hypertension, hyperlipidemia, history of TIA, BPH. 1. Acute community-acquired right lower lobe pneumonia-chest x-ray on admission demonstrated right lower lobe pneumonia. Urine negative for strep and Legionella. Patient has not been found to be hypoxic. Continue IV azithromycin and Rocephin. Albuterol and DuoNeb aerosols. 2. Elevated troponin/vtach-suspect demand ischemia secondary to #1. Patient denies chest pain. EKG without acute changes. Patient has a history of elevated troponin in the past. Stress test in April without evidence of ischemia. Patient with frequent PVCs on the monitor. Magnesium 1.9. Received 2 g magnesium ?1. 30 beat run of vtach this afternoon. Consult cardiology. Hold coumadin. NPO at midnight. Check INR in a.m. 3. Chronic atrial fibrillation-rate controlled. Continue metoprolol, Coumadin. 4. Hypertension-stable, continue home regimen including furosemide, hydrochlorothiazide, lisinopril, metoprolol. 5. Type 2 diabetes mellitus-continue home Amaryl regimen. 6. History of TIA-continue aspirin. 7. BPH-continue home Flomax regimen. 8. Rheumatoid arthritis-continue home methotrexate regimen. DVT prophylaxis-Coumadin This patient was seen by NIXON Perez under the supervision of Dr. Rodriguez. <Janna Rodriguez - Last Filed: 10/21/17 16:00> - Physical Exam Vital Signs Temp Pulse Resp BP Pulse Ox 97.3 F L 75 21 H 157/76 H 93 10/21/17 10:20 10/21/17 12:39 10/21/17 12:39 10/21/17 10:20 10/21/17 10:20 Oxygen Delivery Method Room Air Weight: 87.7 kg Body Mass Index (BMI) 26.2 Intake and Output for Last 24 Hours 10/19/17 10/20/17 10/21/17 23:59 23:59 23:59 Intake Total 2838 / 2838 1545 / 1545 Output Total 300 / 300 Balance 2838 / 2838 1245 / 1245 Microbiology Past 72 Hours 10/20/17 06:10 Legionella Antigen - Final Urine, Random 10/20/17 06:10 Streptococcus pneumoniae Antigen (M - Final Interface Orders 10/20/17 04:55 Influenza Types A,B Direct FA (DANAE) - Final Mucosa - Nasopharyngeal Laboratory Tests Past 24 Hrs 10/20/17 10/20/17 10/21/17 16:10 16:10 05:10 WBC 7.2 RBC 3.47 L Hgb 10.6 L Hct 31.8 L MCV 91.6 MCH 30.5 MCHC 33.3 RDW 17.9 H RDW Differential 57.7 H Plt Count 133 L MPV 12.1 H PT INR Sodium Potassium Chloride Carbon Dioxide Anion Gap BUN Creatinine Estim Creat Clear Calc Est GFR (MDRD) Af Amer Est GFR (MDRD) Non-Af BUN/Creatinine Ratio Glucose Calcium Magnesium 1.9 Troponin I 0.086 H 10/21/17 10/21/17 10/21/17 05:10 05:10 14:26 WBC RBC Hgb Hct MCV MCH MCHC RDW RDW Differential Plt Count MPV PT 28.1 H INR 2.6 Sodium 143 145 Potassium 3.6 3.6 Chloride 113 H 112 H Carbon Dioxide 23.0 24.0 Anion Gap 7 9 BUN 14 13 Creatinine 0.90 0.89 Estim Creat Clear Calc 68.26 69.03 Est GFR (MDRD) Af Amer 104 104 Est GFR (MDRD) Non-Af 86 86 BUN/Creatinine Ratio 15.6 14.5 Glucose 176 H 159 H Calcium 7.9 L 8.3 L Magnesium 2.6 Troponin I POC Glucose 10/21/17 10/21/17 10/20/17 11:14 06:52 22:16 POC Glucose 200 H 212 H 154 H 10/20/17 16:46 POC Glucose 136 H Assessment/Plan Patient was seen and examined. Denies any complaints. Feels well. Denies any fever or chills shortness of breath. No chest pain or dizziness or palpitations. Vitals have remained stable. Telemetry speaking in runs of V. tach. Patient is asymptomatic Physical exam is unchanged, unremarkable Labs show improved potassium but low magnesium. Repeat shows potassium of 3.6, magnesium 2.6. We will keep potassium more than 4, magnesium more than 2 We will replace magnesium, consult cardiology, continue to monitor on telemetry. Code Visit Inpatient E&M: 41037 Subs Hosp L3
[2017-10-21 14:44] LABS: Anion Gap 9 (5-15); BUN 13 mg/dL (7-18); BUN/Creat Ratio 14.5 RATIO (10-20); Calcium,Total 8.3 mg/dL (8.5-10.1); Chloride 112 mmol/L (98-107); Creatinine, Serum 0.89 mg/dL (0.70-1.30); EST Glomerular Filtration Rate 86 mL/min (>60); Est Glom Filt Rate - Afr Amer 104 mL/min (>60); Estimated Creatinine Clearance 69.03 ml/min; Glucose 159 mg/dL (74-106); Magnesium 2.6 mg/dL (1.6-2.6); Potassium 3.6 mmol/L (3.5-5.1); Sodium Level 145 mmol/L (136-145)
[2017-10-21] MEDS: Ceftriaxone 1 GM/50 ML BAG IV (16:08)
[2017-10-21 16:25] LABS: Bedside Glucose 165 mg/dL (70-110)
[2017-10-21 22:05] LABS: Bedside Glucose 207 mg/dL (70-110)
--- NOTE | 2017-10-21 23:20 | RAD_ITS ---
STUDY: X-RAY CHEST REASON FOR EXAM: Male, 82 years old. Short of breath. Dyspnea. TECHNIQUE: Single AP portable view of the chest. COMPARISON: 10/20/2017. FINDINGS: There is infiltration in the right lower lobe which is slightly improved from previous exam. There is infiltration in the left lower lobe as well as a small left pleural effusion, which appears slightly worsened from previous study. There is increased vascular prominence, consistent with CHF. There is moderate cardiac enlargement. Normal mediastinum and shantel. Normal visualized pulmonary arteries. There is atherosclerotic calcification of the aortic arch with tortuosity. There are diffuse degenerative changes of the visualized thoracic spine. There is degenerative osteoarthritis of the bilateral shoulders. There is no demonstrated abnormality of the visualized soft tissue structures of the upper abdomen. RAD/Chest 1 View (Portable) IMPRESSION: Cardiomegaly with CHF, worsened from previous exam. Left lower lobe infiltrate and small left pleural effusion appears slightly worsened. Right lower lobe infiltrate appears slightly improved. Electronically Signed: Mumtaz Zabala MD at 0:19 EDT , Service support ,
[2017-10-21 23:51] LABS: Allen Test POS; Base Excess -4 mmol/L (-2 to +2); Bicarbonate 19.4 mmol/L (22-26); Blood Gas Specimen Type ART; O2 Delivery Device Nasal Can; PO2 57 mmHG (75-100); SITE R Radial; SO2 92 % (95-99); Time Given 2343; Total Carbon Dioxide 20 mmol/L; pCO2 26.9 mmHg (35-45); pH 7.47 (7.35-7.45)
[2017-10-22] VITALS (41 sets, daily range): BP systolic 113–170; BP diastolic 56–93; PULSE 56–100; RESP 20–37; TEMP 37–37.2; O2SAT 5–99
[2017-10-22] MEDS: Ipratropium/Albuterol Sulfate 3 ML AMPUL.NEB INHALATION ×4 (01:07→19:13)
[2017-10-22] MEDS: 0.9% NaCl Peripheral Flush Adult/Peds IV ×3 (01:18→11:25)
[2017-10-22] MEDS: Furosemide 40 MG/4 ML Vial IV ×2 (01:18→11:25)
[2017-10-22 05:53] LABS: Hematocrit 32.4 % (40-54); Hemoglobin 10.9 g/dl (13.0-16.5); Mean Corp Hgb Conc 33.6 g/gl (32-36); Mean Corpuscular Hgb 30.5 pg (27.0-32.0); Mean Corpuscular Volume 90.8 fL (80-94); Mean Platelet Vol. 11.7 fl (6.2-12.0); Platelet Count 161 K/mm3 (150-450); RBC Distribution Width CV 17.6 % (11.6-14.6); Red Blood Count 3.57 M/mm3 (4.6-6.2); White Blood Count 9.7 K/mm3 (4.4-11.0)
--- NOTE | 2017-10-22 05:55 | EKG12_ITS ---
Test Reason : AM EKG Blood Pressure : / mmHG Vent. Rate : 089 BPM Atrial Rate : 104 BPM P-R Int : 000 ms QRS Dur : 166 ms QT Int : 452 ms P-R-T Axes : 000 -10 -02 degrees QTc Int : 549 ms Atrial fibrillation Right bundle branch block Abnormal ECG Confirmed by SHIVANI BARRETT, ARTHUR ([id number]), field map editor CAROLYNN CALLEJAS ([id number]) on 10/23/2017 2:19:11 PM Referred By: MERARI Confirmed By:ARTHUR PARRISH MD
[2017-10-22 06:09] LABS: Anion Gap 9 (5-15); BUN 11 mg/dL (7-18); BUN/Creat Ratio 11.6 RATIO (10-20); Calcium,Total 8.2 mg/dL (8.5-10.1); Chloride 109 mmol/L (98-107); Creatinine, Serum 0.94 mg/dL (0.70-1.30); EST Glomerular Filtration Rate 81 mL/min (>60); Est Glom Filt Rate - Afr Amer 98 mL/min (>60); Estimated Creatinine Clearance 65.35 ml/min; Glucose 218 mg/dL (74-106); Potassium 3.5 mmol/L (3.5-5.1); Sodium Level 143 mmol/L (136-145)
[2017-10-22 06:33] LABS: International Normalized Ratio 2.6; Prothrombin Time (Protime)PT. 27.9 SECONDS (11.7-14.9)
[2017-10-22 06:35] LABS: Scan Indicated on CBC? Y/N NO
[2017-10-22 06:37] LABS: Partial Thromboplast Time 72.4 Seconds (24.1-36.2)
[2017-10-22 06:55] LABS: Bedside Glucose 198 mg/dL (70-110)
[2017-10-22] MEDS: Insulin Lispro 100 UNIT/ML INSULN.PEN SC ×3 (08:16→21:39)
[2017-10-22] MEDS: Aspirin 81 MG TAB.CHEW PO (10:20)
[2017-10-22] MEDS: Folic Acid 1 MG Tablet PO (11:13)
[2017-10-22] MEDS: Glimepiride 2 MG Tablet PO (11:13)
[2017-10-22] MEDS: Tamsulosin HCl 0.4 MG Capsule PO (11:14)
[2017-10-22] MEDS: amLODIPine 10 MG Tablet PO (11:17)
[2017-10-22] MEDS: Metoprolol Tartrate 50 MG Tablet PO ×2 (11:17→21:39)
[2017-10-22] MEDS: Lisinopril 40 MG Tablet PO (11:18)
[2017-10-22] MEDS: Ceftriaxone 1 GM/50 ML BAG IV (11:25)
--- NOTE | 2017-10-22 11:43 | CON.PCM_ITS ---
Problem List (1) CAP (community acquired pneumonia) Status: Acute (2) TIA (transient ischemic attack) Status: Chronic (3) Chronic atrial fibrillation Status: Chronic Reason for Consult Date of Consultation: 10/22/17 Reason for Consultation: Chronic atrial fibrillation, shortness of breath, aortic stenosis History of Present Illness: The patient is a 82 year old M, patient of Dr. Weiss with a history of hypertension, chronic persistent atrial fibrillation, recently admitted to [facility] with shortness of breath and mild troponin elevation. He was felt to be in diastolic heart failure and was treated medically. His echocardiogram at that time demonstrated normal LV function with an EF of 60%, moderate right atrial enlargement, severe left atrial enlargement, pulmonary pressures of about 45 mmHg as well as moderate aortic stenosis. Patient was diuresed and subsequently sent home. Patient has chronic persistent atrial fibrillation and is on chronic Coumadin therapy. I get the sense that he is fairly demented and is not have a lot of insight into his medical condition. Most of his history is obtained through his . The patient was doing well up until the last day or so when he developed progressively worsening productive cough, shortness of breath. He was felt to have a community-acquired pneumonia was treated medically. While admitted he developed atrial fibrillation with rapid ventricular response superimposed on burst of wide-complex tachycardia. His baseline EKG showed atrial fibrillation with controlled ventricular response with right bundle branch block. The patient denied any chest pain, angina, medical noncompliance or lower extremity edema. Denies any presyncope or syncope. [] Past Medical History Allergies/Adverse Reactions: Allergies No Known Allergies Allergy (Verified 10/20/17 03:53) Home Medications: Ambulatory Orders Medication Instructions Recorded Aspirin [Aspirin, Baby] 81 mg PO DAILY 12/31/12 Hydrochlorothiazide 25 mg PO DAILY 12/31/12 Metoprolol Tartrate [Lopressor 50 mg PO BID 12/31/12 (beta judy)] Tamsulosin HCl [Flomax] 0.4 mg PO DAILY 12/31/12 Warfarin Sodium [Coumadin] 3 mg PO DAILY 12/31/12 Amlodipine [Norvasc] 10 mg PO DAILY 09/16/16 Folic Acid 1 mg PO DAILY 09/16/16 Methotrexate 5 tab PO [place] 09/16/16 Lisinopril [Zestril] 40 mg PO DAILY #30 tab 09/20/16 potassium chloride ER 20 mEq 20 meq PO DAILY 90 Days #270 04/11/17 tablet,extended release(part/cryst) furosemide 40 mg tablet 40 mg PO DAILY #90 tab 10/11/17 Glimepiride [Amaryl] 2 mg PO DAILY 10/20/17 Lactobacillus Acidophilus 1 tablet PO DAILY 10/20/17 [Acidophilus] Azithromycin 500 mg PO DAILY #3 tab 10/21/17 Cefdinir [Omnicef [equiv]] 300 mg PO Q12H 8 Days #16 cap 10/21/17 Past Medical History (Chronic Problems): Chronic Problems (Last Reviewed 10/20/17 @ 02:57 by Sagar Simpson MD) TIA (transient ischemic attack) (Chronic) Rheumatoid arthritis (Chronic) Chronic atrial fibrillation (Chronic) Benign hypertension (Chronic) Type II diabetes mellitus (Chronic) Surgical History: cholecystectomy, herniorrhaphy Psychiatric History: No pertinent psych hx - *Family History Maternal History Items: No pertinent history Paternal History Items: No pertinent history Lives: Spouse/ Significant Other Smoking Status: Never smoker Alcohol: None Drugs: None Review of Systems - Review of Systems General: Reports: Fatigue. Denies: Fever, Night Sweats Cardiovascular: Reports: Shortness of Breath, Shortness of Breath at Rest. Denies: Chest Discomfort, Orthopnea, PND, Peripheral Edema, Palpitations, Lightheadedness, Dizziness, Near Syncope, Syncope Respiratory: Denies: Cough, Sputum Production, Hemoptysis Gastrointestinal: Denies: Hematemesis, Hematochezia, Melena Genitourinary: Denies: Dysuria, Hematuria Skin: Denies: Rash Subjectve: Patient on Ventimask, on IV amiodarone drip. No acute distress. Objective: Vital Signs Temp Pulse Resp BP Pulse Ox 98.7 F 87 26 H 157/84 H 96 10/22/17 08:00 10/22/17 11:17 10/22/17 10:00 10/22/17 11:17 10/22/17 10:00 Oxygen Flow Rate (L/min) 8 Oxygen Delivery Method Venturi Mask Weight: 193 lb 1.999 oz Body Mass Index (BMI) 26.2 Intake and Output for Last 24 Hours 10/20/17 10/21/17 10/22/17 23:59 23:59 23:59 Intake Total 2838 / 2838 1944 / 1944 953 / 953 Output Total 300 / 300 1700 / 1700 Balance 2838 / 2838 1644 / 1644 -747 / -747 General: Awake, Alert, Oriented x 3 HEENT: PERRL, EOMI, Sclera Non Icteric Neck: Supple, Good ROM, No Lymph Node Enlargement Lungs: Diminished Darrick Bases Cardiovascular: Irregular Rhythm, Normal S1, Normal S2, No Rubs, No Gallops Murmur Murmur: Grade 2/6, Crescendo-Decrescendo Vascular: No Carotid Bruits, Normal Femoral Pulses, Normal Radial Pulses, Normal Dorsalis Pedal Pulse, Normal Posterior Tibial Pulses Abdomen: Bowel Sounds Present, Soft, Non Tender, No HSM, No Organomegaly Extremities: No Cyanosis, No Clubbing, No edema Neurological: No Focal Motor or Sensory Deficit 10/21/17 14:26: Sodium 145, Potassium 3.6, Chloride 112 H, Carbon Dioxide 24.0, Anion Gap 9, BUN 13, Creatinine 0.89, Est GFR (MDRD) Af Amer 104, Est GFR (MDRD ) Non-Af 86, BUN/Creatinine Ratio 14.5, Glucose 159 H, Calcium 8.3 L, Magnesium 2.6 10/21/17 23:40: Troponin I 0.122 H 10/21/17 23:45: pH 7.47 H, Bicarbonate Actual 19.4 L, POC Total CO2 20, Base Excess -4 L, O2 Saturation 92 L, ABG pCO2 26.9 L, ABG pO2 57 L, Bill Test POS 10/22/17 01:45: Troponin I 0.136 H 10/22/17 05:06: WBC 9.7, RBC 3.57 L, Hgb 10.9 L, Hct 32.4 L, MCV 90.8, MCH 30.5 , MCHC 33.6, RDW 17.6 H, RDW Differential 57.0 H, Plt Count 161, MPV 11.7 10/22/17 05:06: PT 27.9 H, INR 2.6, APTT 72.4 H 10/22/17 05:06: Sodium 143, Potassium 3.5, Chloride 109 H, Carbon Dioxide 25.0, Anion Gap 9, BUN 11, Creatinine 0.94, Est GFR (MDRD) Af Amer 98, Est GFR (MDRD) Non-Af 81, BUN/Creatinine Ratio 11.6, Glucose 218 H, Calcium 8.2 L 10/22/17 05:06: Troponin I 0.132 H Rhythm: EKG: As above dated 09/18/16 showed normal LV size and function with EF of 60%, RVSP of 45 mmHg, peak and mean gradient across the aortic valve was 37 and 20 mmHg respectively. ECHO: Stress Test: Cardiac Cath: PCI: CT Surgery: Holter monitor: EPS: PPM: CXR: Chest CT Scan: Assessment/Plan 1. Wide-complex tachycardia: It is uncertain whether the patient has true ventricular tachycardia versus atrial fibrillation with aberrancy. Nonetheless he appears to be responding well to IV amiodarone therapy would recommend continuing IV amiodarone 1 more day and transition him to amiodarone 200 mg p.o. daily going forward to suppress his ventricular arrhythmias as well as to control his atrial fibrillation. I do not believe he would be a good candidate for DC cardioversion at this time. His troponins are weakly abnormal at 0.132. His most recent stress test dated 04/30/17 was negative for inducible ischemia. At this point I would hold off on diagnostic coronary angiography at this time given his dementia. I would however recommend continuing him on Lasix 40 mg a day, lisinopril 40 mg a day, metoprolol 50 mg twice daily, and amlodipine 10 mg a day. He will continue baby aspirin and Coumadin going forward. 2. Aortic stenosis: The patient had mild aortic stenosis as assessed by recent echocardiogram. No changes needed at this time. 3. I would not recommend discharge today given the fact the patient still on a Ventimask unless that is his baseline. If discharged today is eminent, would recommend discontinuation of IV amiodarone and continuing amiodarone 200 mg p.o. daily for heart rate control. 4. Thank you very much for the opportunity to participate in the cardiac care of your patient. Consultation time took place between 11 and 11:30 AM. Patient may follow-up with Dr. Regalado. Code Visit Inpatient E&M: 72556 Subs Hosp L2
[2017-10-22 11:50] LABS: Bedside Glucose 232 mg/dL (70-110)
--- NOTE | 2017-10-22 12:27 | PCM.PROGNOTE ---
<Christina Jones - Last Filed: 10/22/17 12:44> Subjective: Patient seen and examined. Denies chest pain, palpitations, shortness of breath overnight. Patient states he was told his oxygen dropped overnight and they put a Ventimask on him. No other complaints. - Physical Exam General: Alert, Oriented x3, Cooperative HEENT: Atraumatic, PERRLA, EOMI, Normocephalic Neck: Supple, No JVD, Negative Carotid Bruits Lungs: Diminished, - - Crackles bilateral bases Cardiovascular: Murmur, - - Atrial fibrillation Abdomen: Bowel Sounds Present, Soft, Non Tender, Non-Distended Extremities: No clubbing, No cyanosis, No edema, Capillary Refill Less than 3 Seconds Skin: No rashes, No breakdown Musculoskeletal: No Tenderness to Palpation of Joints or Extremities Neurological: Cranial nerves II-XII grossly intact, Neuro grossly intact Psych/Mental Status: Normal Affect, Appropriate Vital Signs Temp Pulse Resp BP Pulse Ox 98.7 F 87 26 H 157/84 H 97 10/22/17 08:00 10/22/17 11:17 10/22/17 11:00 10/22/17 11:17 10/22/17 11:00 Oxygen Flow Rate (L/min) 1 Oxygen Delivery Method Nasal Cannula Weight: 193 lb 1.999 oz Body Mass Index (BMI) 26.2 Intake and Output for Last 24 Hours 10/20/17 10/21/17 10/22/17 23:59 23:59 23:59 Intake Total 2838 / 2838 1944 / 1944 953 / 953 Output Total 300 / 300 1700 / 1700 Balance 2838 / 2838 1644 / 1644 -747 / -747 Microbiology Past 72 Hours 10/20/17 06:10 Legionella Antigen - Final Urine, Random 10/20/17 06:10 Streptococcus pneumoniae Antigen (M - Final Interface Orders 10/20/17 04:55 Influenza Types A,B Direct FA (DANAE) - Final Mucosa - Nasopharyngeal Laboratory Tests Past 24 Hrs 10/21/17 10/21/17 10/21/17 14:26 23:40 23:45 WBC RBC Hgb Hct MCV MCH MCHC RDW RDW Differential Plt Count MPV PT INR APTT Specimen Type ART Sample Site R Radial pH 7.47 H Bicarbonate Actual 19.4 L POC Total CO2 20 Base Excess -4 L O2 Saturation 92 L ABG pCO2 26.9 L ABG pO2 57 L Bill Test POS O2 Delivery Device Nasal Can Liter Flow 4.0 Blood Gas Notified Whom [facility] Blood Gas Notified Time 2343 Sodium 145 Potassium 3.6 Chloride 112 H Carbon Dioxide 24.0 Anion Gap 9 BUN 13 Creatinine 0.89 Estim Creat Clear Calc 69.03 Est GFR (MDRD) Af Amer 104 Est GFR (MDRD) Non-Af 86 BUN/Creatinine Ratio 14.5 Glucose 159 H Calcium 8.3 L Magnesium 2.6 Troponin I 0.122 H 10/22/17 10/22/17 10/22/17 01:45 05:06 05:06 WBC 9.7 RBC 3.57 L Hgb 10.9 L Hct 32.4 L MCV 90.8 MCH 30.5 MCHC 33.6 RDW 17.6 H RDW Differential 57.0 H Plt Count 161 MPV 11.7 PT 27.9 H INR 2.6 APTT 72.4 H Specimen Type Sample Site pH Bicarbonate Actual POC Total CO2 Base Excess O2 Saturation ABG pCO2 ABG pO2 Bill Test O2 Delivery Device Liter Flow Blood Gas Notified Whom Blood Gas Notified Time Sodium Potassium Chloride Carbon Dioxide Anion Gap BUN Creatinine Estim Creat Clear Calc Est GFR (MDRD) Af Amer Est GFR (MDRD) Non-Af BUN/Creatinine Ratio Glucose Calcium Magnesium Troponin I 0.136 H 10/22/17 10/22/17 05:06 05:06 WBC RBC Hgb Hct MCV MCH MCHC RDW RDW Differential Plt Count MPV PT INR APTT Specimen Type Sample Site pH Bicarbonate Actual POC Total CO2 Base Excess O2 Saturation ABG pCO2 ABG pO2 Bill Test O2 Delivery Device Liter Flow Blood Gas Notified Whom Blood Gas Notified Time Sodium 143 Potassium 3.5 Chloride 109 H Carbon Dioxide 25.0 Anion Gap 9 BUN 11 Creatinine 0.94 Estim Creat Clear Calc 65.35 Est GFR (MDRD) Af Amer 98 Est GFR (MDRD) Non-Af 81 BUN/Creatinine Ratio 11.6 Glucose 218 H Calcium 8.2 L Magnesium Troponin I 0.132 H POC Glucose 10/22/17 10/22/17 10/21/17 11:28 06:48 21:52 POC Glucose 232 H 198 H 207 H 10/21/17 16:10 POC Glucose 165 H Medical Necessity - Tobacco Use Smoking Status: Never smoker Assessment/Plan All Active Problems (Last Reviewed 10/20/17 @ 02:57 by Sagar Simpson MD) CAP (community acquired pneumonia) (Acute) History of knee replacement (Resolved) Hx of hernia repair (Resolved) Aspiration pneumonia (Resolved) Altered mental status (Resolved) Patient is an 82-year-old male admitted 10/20/2017 due to shortness of breath, cough. He has a past medical history of rheumatoid arthritis, chronic atrial fibrillation, hypertension, hyperlipidemia, history of TIA, BPH. 1. Acute community-acquired right lower lobe pneumonia-chest x-ray on admission demonstrated right lower lobe pneumonia. Urine negative for strep and Legionella. Continue IV Rocephin. IV azithromycin completed. Albuterol and DuoNeb aerosols. Blood cultures show no growth. 2. Elevated troponin/wide-complex tachycardia-suspect demand ischemia secondary to #1. Patient denies chest pain. EKG without acute changes. Patient has a history of elevated troponin in the past. Stress test in April without evidence of ischemia. Patient continues to have episodes of wide-complex tachycardia. Cardiology consulted. Patient was started on amiodarone drip. Patient will transition to amiodarone 200 mg daily at discharge. No further plans for cardiac catheterization at this time. 3. Acute respiratory insufficiency suspected secondary to hypervolemia as a result of IV fluids-continue supplemental oxygen maintain O2 at or above 90%. Patient received IV Lasix ?2. Chest x-ray consistent with vascular congestion. Continue Lasix 40 mg daily p.o. hypoxia was not documented however patient was reported to be hypoxic overnight and required Ventimask. 4. Chronic atrial fibrillation-rate controlled. Continue metoprolol, Coumadin. 5. Hypertension-stable, continue home regimen including furosemide, hydrochlorothiazide, lisinopril, metoprolol. 6. Type 2 diabetes mellitus-continue home Amaryl regimen. 7. History of TIA-continue aspirin. 8. BPH-continue home Flomax regimen. 9. Rheumatoid arthritis-continue home methotrexate regimen. DVT prophylaxis-Coumadin on hold, INR therapeutic This patient was seen by Christina Jones NP-Annmarie under the supervision of Dr. Rodriguez. <Janna Rodriguez - Last Filed: 10/22/17 15:08> - Physical Exam Vital Signs Temp Pulse Resp BP Pulse Ox 98.7 F 91 22 H 146/78 H 93 07/23/18 08:00 10/22/17 13:30 10/22/17 13:30 10/22/17 13:00 10/22/17 13:00 Oxygen Flow Rate (L/min) 1 Oxygen Delivery Method Nasal Cannula Weight: 87.6 kg Body Mass Index (BMI) 26.2 Intake and Output for Last 24 Hours 10/20/17 10/21/17 10/22/17 23:59 23:59 23:59 Intake Total 2838 / 2838 1944 / 1944 1637 / 1637 Output Total 300 / 300 1800 / 1800 Balance 2838 / 2838 1644 / 1644 -163 / -163 Microbiology Past 72 Hours 10/20/17 06:10 Legionella Antigen - Final Urine, Random 10/20/17 06:10 Streptococcus pneumoniae Antigen (M - Final Interface Orders 10/20/17 04:55 Influenza Types A,B Direct FA (DANAE) - Final Mucosa - Nasopharyngeal Laboratory Tests Past 24 Hrs 10/21/17 10/21/17 10/22/17 23:40 23:45 01:45 WBC RBC Hgb Hct MCV MCH MCHC RDW RDW Differential Plt Count MPV PT INR APTT Specimen Type ART Sample Site R Radial pH 7.47 H Bicarbonate Actual 19.4 L POC Total CO2 20 Base Excess -4 L O2 Saturation 92 L ABG pCO2 26.9 L ABG pO2 57 L Bill Test POS O2 Delivery Device Nasal Can Liter Flow 4.0 Blood Gas Notified Whom [facility] Blood Gas Notified Time 2343 Sodium Potassium Chloride Carbon Dioxide Anion Gap BUN Creatinine Estim Creat Clear Calc Est GFR (MDRD) Af Amer Est GFR (MDRD) Non-Af BUN/Creatinine Ratio Glucose Calcium Troponin I 0.122 H 0.136 H 10/22/17 10/22/17 10/22/17 05:06 05:06 05:06 WBC 9.7 RBC 3.57 L Hgb 10.9 L Hct 32.4 L MCV 90.8 MCH 30.5 MCHC 33.6 RDW 17.6 H RDW Differential 57.0 H Plt Count 161 MPV 11.7 PT 27.9 H INR 2.6 APTT 72.4 H Specimen Type Sample Site pH Bicarbonate Actual POC Total CO2 Base Excess O2 Saturation ABG pCO2 ABG pO2 Bill Test O2 Delivery Device Liter Flow Blood Gas Notified Whom Blood Gas Notified Time Sodium 143 Potassium 3.5 Chloride 109 H Carbon Dioxide 25.0 Anion Gap 9 BUN 11 Creatinine 0.94 Estim Creat Clear Calc 65.35 Est GFR (MDRD) Af Amer 98 Est GFR (MDRD) Non-Af 81 BUN/Creatinine Ratio 11.6 Glucose 218 H Calcium 8.2 L Troponin I 10/22/17 05:06 WBC RBC Hgb Hct MCV MCH MCHC RDW RDW Differential Plt Count MPV PT INR APTT Specimen Type Sample Site pH Bicarbonate Actual POC Total CO2 Base Excess O2 Saturation ABG pCO2 ABG pO2 Bill Test O2 Delivery Device Liter Flow Blood Gas Notified Whom Blood Gas Notified Time Sodium Potassium Chloride Carbon Dioxide Anion Gap BUN Creatinine Estim Creat Clear Calc Est GFR (MDRD) Af Amer Est GFR (MDRD) Non-Af BUN/Creatinine Ratio Glucose Calcium Troponin I 0.132 H POC Glucose 10/22/17 10/22/17 10/21/17 11:28 06:48 21:52 POC Glucose 232 H 198 H 207 H 10/21/17 16:10 POC Glucose 165 H Assessment/Plan Patient seen and examined. I agree with the interval history and physical exam assessment and plan as documented by nurse practitioner Christnia Jones Patient complained of SOB, managed on Ventimask overnight. Denies chest pain or fever or chills Vitals have remained stable. Telemetry showed wide complex tachycardia; patient cardiology consult, started on amiodarone drip. Will continue on IV antibiotics and amiodarone. Code Visit Inpatient E&M: 81431 Subs Hosp L2
[2017-10-22 16:11] LABS: Bedside Glucose 142 mg/dL (70-110)
[2017-10-22 21:50] LABS: Bedside Glucose 186 mg/dL (70-110)
[2017-10-23] VITALS (21 sets, daily range): BP systolic 80–157; BP diastolic 52–80; PULSE 57–98; RESP 16–31; TEMP 36.8–37.1; O2SAT 83–100
[2017-10-23] MEDS: Ipratropium/Albuterol Sulfate 3 ML AMPUL.NEB INHALATION ×3 (01:15→12:59)
[2017-10-23 05:42] LABS: Hematocrit 32.3 % (40-54); Hemoglobin 10.8 g/dl (13.0-16.5); Mean Corp Hgb Conc 33.4 g/gl (32-36); Mean Corpuscular Hgb 30.3 pg (27.0-32.0); Mean Corpuscular Volume 90.7 fL (80-94); Mean Platelet Vol. 11.5 fl (6.2-12.0); Platelet Count 164 K/mm3 (150-450); RBC Distribution Width CV 17.6 % (11.6-14.6); RBC Distribution Width SD 56.5 fl (35.1-43.9); Red Blood Count 3.56 M/mm3 (4.6-6.2); White Blood Count 7.3 K/mm3 (4.4-11.0)
[2017-10-23 05:53] LABS: Anion Gap 8 (5-15); BUN 13 mg/dL (7-18); BUN/Creat Ratio 14.6 RATIO (10-20); Calcium,Total 8.1 mg/dL (8.5-10.1); Chloride 110 mmol/L (98-107); Creatinine, Serum 0.89 mg/dL (0.70-1.30); EST Glomerular Filtration Rate 87 mL/min (>60); Est Glom Filt Rate - Afr Amer 105 mL/min (>60); Estimated Creatinine Clearance 69.03 ml/min; Glucose 164 mg/dL (74-106); Potassium 3.5 mmol/L (3.5-5.1); Sodium Level 145 mmol/L (136-145)
[2017-10-23 06:17] LABS: Scan Indicated on CBC? Y/N NO
[2017-10-23 06:19] LABS: International Normalized Ratio 2.5; Prothrombin Time (Protime)PT. 27.1 SECONDS (11.7-14.9)
[2017-10-23 06:55] LABS: Bedside Glucose 168 mg/dL (70-110)
[2017-10-23] MEDS: Aspirin 81 MG TAB.CHEW PO (08:03)
[2017-10-23] MEDS: Insulin Lispro 100 UNIT/ML INSULN.PEN SC ×2 (08:03→11:57)
[2017-10-23] MEDS: Glimepiride 2 MG Tablet PO (08:03)
[2017-10-23] MEDS: Folic Acid 1 MG Tablet PO (08:03)
[2017-10-23] MEDS: Tamsulosin HCl 0.4 MG Capsule PO (09:28)
[2017-10-23] MEDS: hydroCHLOROthiazide 25 MG Tablet PO (09:28)
[2017-10-23] MEDS: amLODIPine 10 MG Tablet PO (09:28)
[2017-10-23] MEDS: Metoprolol Tartrate 50 MG Tablet PO (09:28)
[2017-10-23] MEDS: Amiodarone 200 MG Tablet PO (09:28)
[2017-10-23] MEDS: Furosemide 40 MG Tablet PO (09:28)
[2017-10-23] MEDS: Lisinopril 40 MG Tablet PO (09:29)
[2017-10-23] MEDS: Ceftriaxone 1 GM/50 ML BAG IV (10:38)
[2017-10-23 11:35] LABS: Bedside Glucose 212 mg/dL (70-110)
--- NOTE | 2017-10-23 11:35 | PCM.DC ---
You will use the following diet at home:: Cardiac Discharge Activity: Return to Normal Activity Call your doctor if you observe: Shortness of breath, Dizziness, Fainting spells, Chest pain Additional Instructions: Recommend repeat CXR in 6-8 Weeks. Can be ordered by PCP. Allergies/Adverse Reactions: Allergies No Known Allergies Allergy (Verified 10/20/17 03:53) Medications to take at Discharge Aspirin [Aspirin, Baby] 81 mg PO DAILY 12/31/12 Hydrochlorothiazide 25 mg PO DAILY 12/31/12 Metoprolol Tartrate [Lopressor (beta judy)] 50 mg PO BID 12/31/12 Tamsulosin HCl [Flomax] 0.4 mg PO DAILY 12/31/12 Warfarin Sodium [Coumadin] 3 mg PO DAILY 12/31/12 Amlodipine [Norvasc] 10 mg PO DAILY 09/16/16 Folic Acid 1 mg PO DAILY 09/16/16 Methotrexate 5 tab PO [place] 09/16/16 Lisinopril [Zestril] 40 mg PO DAILY #30 tab 09/20/16 potassium chloride ER 20 mEq tablet,extended release(part/cryst) 20 meq PO DAILY 90 Days #270 04/11/17 furosemide 40 mg tablet 40 mg PO DAILY #90 tab 10/11/17 Glimepiride [Amaryl] 2 mg PO DAILY 10/20/17 Lactobacillus Acidophilus [Acidophilus] 1 tablet PO DAILY 10/20/17 Amiodarone HCl [Cordarone] 200 mg PO DAILY #30 tab 10/23/17 Cefdinir [Omnicef [equiv]] 300 mg PO Q12H #12 cap 10/23/17 The following prescriptions were given: Amiodarone HCl [Cordarone] 200 mg PO DAILY #30 tab Cefdinir [Omnicef [equiv]] 300 mg PO Q12H #12 cap Primary Care Physician: Kayleen Meyer MD [Primary Care Provider] - Please follow up with your Primary Care Physician in: 1 Week Test Results: Test results from this visit will be discussed in further detail at your follow-up appointment, if applicable. Please Follow Up With: Aaron Regalado MD - May see ELECTRIC SCOOP OPERATOR/PA When: Within 1 week Proposed Discharge Date: 10/23/17
--- NOTE | 2017-10-23 11:39 | DCINST_ITS ---
You will use the following diet at home:: Cardiac Discharge Activity: Return to Normal Activity Call your doctor if you observe: Shortness of breath, Dizziness, Fainting spells , Chest pain Additional Instructions: Recommend repeat CXR in 6-8 Weeks. Can be ordered by PCP. Allergies/Adverse Reactions: Allergies No Known Allergies Allergy (Verified 10/20/17 03:53) Medications to take at Discharge Aspirin [Aspirin, Baby] 81 mg PO DAILY 12/31/12 Hydrochlorothiazide 25 mg PO DAILY 12/31/12 Metoprolol Tartrate [Lopressor (beta judy)] 50 mg PO BID 12/31/12 Tamsulosin HCl [Flomax] 0.4 mg PO DAILY 12/31/12 Warfarin Sodium [Coumadin] 3 mg PO DAILY 12/31/12 Amlodipine [Norvasc] 10 mg PO DAILY 09/16/16 Folic Acid 1 mg PO DAILY 09/16/16 Methotrexate 5 tab PO [place] 09/16/16 Lisinopril [Zestril] 40 mg PO DAILY #30 tab 09/20/16 potassium chloride ER 20 mEq tablet,extended release(part/cryst) 20 meq PO DAILY 90 Days #270 04/11/17 furosemide 40 mg tablet 40 mg PO DAILY #90 tab 10/11/17 Glimepiride [Amaryl] 2 mg PO DAILY 10/20/17 Lactobacillus Acidophilus [Acidophilus] 1 tablet PO DAILY 10/20/17 Amiodarone HCl [Cordarone] 200 mg PO DAILY #30 tab 10/23/17 Cefdinir [Omnicef [equiv]] 300 mg PO Q12H #12 cap 10/23/17 The following prescriptions were given: Amiodarone HCl [Cordarone] 200 mg PO DAILY #30 tab Cefdinir [Omnicef [equiv]] 300 mg PO Q12H #12 cap Primary Care Physician: Kayleen Meyer MD [Primary Care Provider] - Please follow up with your Primary Care Physician in: 1 Week Test Results: Test results from this visit will be discussed in further detail at your follow- up appointment, if applicable. Please Follow Up With: Aaron Regalado MD - May see WATER QUALITY TECHNICIAN/PA When: Within 1 week Proposed Discharge Date: 10/23/17
--- NOTE | 2017-10-23 12:14 | CASEMGMT ---
Per Jelani DOAN, pt qualified for home oxygen at this time. This RN CM to room to speak with pt about DME preference and pt states no preference at this time. Referral faxed to [facility] at this time. Call to [facility] to notify of referral and Aditi states that recycling collections driver will be here in about 30 minutes or so. Nidhi DOAN CM
--- NOTE | 2017-10-23 12:18 | PCM.DC.SUM ---
<Christina Jones - Last Filed: 10/23/17 12:34> Discharge Date and Diagnosis Date of Admission: 10/20/17 Date of Discharge: 10/23/17 - Primary Discharge Diagnosis 1. Acute community-acquired right lower lobe pneumonia 2. Elevated troponin, demand ischemia secondary #1 3. Nonsustained wide complex tachycardia 4. Acute respiratory insufficiency secondary to hypervolemia 5. Acute hypoxia secondary to #1/#4-patient will require supplemental oxygen at discharge, 2 L nasal cannula with ambulation only. - Secondary Discharge Diagnosis Chronic Problems (Last Reviewed 10/20/17 @ 02:57 by Sagar Simpson MD) TIA (transient ischemic attack) (Chronic) Rheumatoid arthritis (Chronic) Chronic atrial fibrillation (Chronic) Benign hypertension (Chronic) Type II diabetes mellitus (Chronic) Hospital Course and Treatment Imaging Results: Diagnostic Data Chest X-Ray 10/21/17 23:20 IMPRESSION: Cardiomegaly with CHF, worsened from previous exam. Left lower lobe infiltrate and small left pleural effusion appears slightly worsened. Right lower lobe infiltrate appears slightly improved. Electronically Signed: Mumtaz Zabala MD at 0:19 EDT , Service support , Operations: None Procedures: None Summary of Care Provided: Patient is an 82-year-old male admitted 10/20/2017 due to shortness of breath, cough. He has a past medical history of rheumatoid arthritis, chronic atrial fibrillation, hypertension, hyperlipidemia, history of TIA, BPH. 1. Acute community-acquired right lower lobe pneumonia-chest x-ray on admission demonstrated right lower lobe pneumonia. Urine negative for strep and Legionella. Cefdinir 300 mg twice daily for 6 days. Follow-up with primary care physician in 1 week. Patient requires supplemental oxygen with ambulation. He is ambulatory in the home. Recommend 2 L nasal cannula of oxygen while ambulating at discharge. Maintain oxygen saturation at or above 90%. 2. Elevated troponin/wide-complex tachycardia-suspect demand ischemia secondary to #1. Patient denies chest pain. EKG without acute changes. Patient has a history of elevated troponin in the past. Stress test in April without evidence of ischemia. Cardiology consulted due to wide-complex tachycardia. Patient was started on amiodarone drip. Patient will transition to amiodarone 200 mg daily at discharge. Patient will follow-up with Dr. Regalado 1 week. 3. Acute respiratory insufficiency suspected secondary to hypervolemia as a result of IV fluids-continue supplemental oxygen maintain O2 at or above 90%. Patient received IV Lasix ?2. Chest x-ray consistent with vascular congestion. Continue Lasix 40 mg daily p.o. at discharge. 4. Chronic atrial fibrillation-rate controlled. Continue metoprolol, Coumadin. 5. Hypertension-stable, continue home regimen including furosemide, hydrochlorothiazide, lisinopril, metoprolol. 6. Type 2 diabetes mellitus-continue home Amaryl regimen. 7. History of TIA-continue aspirin. 8. BPH-continue home Flomax regimen. 9. Rheumatoid arthritis-continue home methotrexate regimen. General: Alert, Oriented x3, Cooperative HEENT: Atraumatic, PERRLA, EOMI, Normocephalic Neck: Supple, No JVD, Negative Carotid Bruits Lungs: Diminished, fine crackles right base Cardiovascular: Murmur, - - Atrial fibrillation Abdomen: Bowel Sounds Present, Soft, Non Tender, Non-Distended Extremities: No clubbing, No cyanosis, No edema, Capillary Refill Less than 3 Seconds Skin: No rashes, No breakdown Musculoskeletal: No Tenderness to Palpation of Joints or Extremities Neurological: Cranial nerves II-XII grossly intact, Neuro grossly intact Psych/Mental Status: Normal Affect, Appropriate This patient was seen by NIXON Perez under the supervision of Dr. Rodriguez. Discharge Diet: Low fat/ Low Cholesterol Discharge Activity: Return to Normal Activity Call your doctor if you observe: Shortness of breath, Dizziness, Fainting spells, Chest pain Home Medications: Medications to take at Discharge Aspirin [Aspirin, Baby] 81 mg PO DAILY 12/31/12 Hydrochlorothiazide 25 mg PO DAILY 12/31/12 Metoprolol Tartrate [Lopressor (beta judy)] 50 mg PO BID 12/31/12 Tamsulosin HCl [Flomax] 0.4 mg PO DAILY 12/31/12 Warfarin Sodium [Coumadin] 3 mg PO DAILY 12/31/12 Amlodipine [Norvasc] 10 mg PO DAILY 09/16/16 Folic Acid 1 mg PO DAILY 09/16/16 Methotrexate 5 tab PO [place] 09/16/16 Lisinopril [Zestril] 40 mg PO DAILY #30 tab 09/20/16 potassium chloride ER 20 mEq tablet,extended release(part/cryst) 20 meq PO DAILY 90 Days #270 04/11/17 furosemide 40 mg tablet 40 mg PO DAILY #90 tab 10/11/17 Glimepiride [Amaryl] 2 mg PO DAILY 10/20/17 Lactobacillus Acidophilus [Acidophilus] 1 tablet PO DAILY 10/20/17 Amiodarone HCl [Cordarone] 200 mg PO DAILY #30 tab 10/23/17 Cefdinir [Omnicef [equiv]] 300 mg PO Q12H #12 cap 10/23/17 Following Prescrptions Were Given to Patient: Amiodarone HCl [Cordarone] 200 mg PO DAILY #30 tab Cefdinir [Omnicef [equiv]] 300 mg PO Q12H #12 cap Primary Care Physician: Kayleen Meyer MD [Primary Care Provider] - Please follow up with your Primary Care Physician in: 1 Week Please Follow Up With: Aaron Regalado MD - May see [facility]PLEN[facility]ER/PA When: Within 1 week Disposition: Home Minutes spent on discharge:: 35 Patient Condition:: Stable Medical Necessity - Tobacco Use Smoking Status: Never smoker Meaningful Use Info Meaningful Use Diagnoses (Choose all that apply): None applicable <Duc Rodrigueza - Last Filed: 10/23/17 15:27> Discharge Date and Diagnosis - Secondary Discharge Diagnosis Chronic Problems (Last Reviewed 10/20/17 @ 02:57 by Sagar Simpson MD) TIA (transient ischemic attack) (Chronic) Rheumatoid arthritis (Chronic) Chronic atrial fibrillation (Chronic) Benign hypertension (Chronic) Type II diabetes mellitus (Chronic) Hospital Course and Treatment Summary of Care Provided: The patient is a 82 year old M [] Code Visit Inpatient E&M: 69114 Disch Hosp
--- NOTE | 2017-10-23 12:25 | DS.PCM_ITS ---
<Christina Jones - Last Filed: 10/23/17 12:34> Discharge Date and Diagnosis Date of Admission: 10/20/17 Date of Discharge: 10/23/17 - Primary Discharge Diagnosis 1. Acute community-acquired right lower lobe pneumonia 2. Elevated troponin, demand ischemia secondary #1 3. Nonsustained wide complex tachycardia 4. Acute respiratory insufficiency secondary to hypervolemia 5. Acute hypoxia secondary to #1/#4-patient will require supplemental oxygen at discharge, 2 L nasal cannula with ambulation only. - Secondary Discharge Diagnosis Chronic Problems (Last Reviewed 10/20/17 @ 02:57 by Sagar Simpson MD) TIA (transient ischemic attack) (Chronic) Rheumatoid arthritis (Chronic) Chronic atrial fibrillation (Chronic) Benign hypertension (Chronic) Type II diabetes mellitus (Chronic) Hospital Course and Treatment Imaging Results: Diagnostic Data Chest X-Ray 10/21/17 23:20 IMPRESSION: Cardiomegaly with CHF, worsened from previous exam. Left lower lobe infiltrate and small left pleural effusion appears slightly worsened. Right lower lobe infiltrate appears slightly improved. Electronically Signed: Mumtaz Zabala MD at 0:19 EDT , Service support , Operations: None Procedures: None Summary of Care Provided: Patient is an 82-year-old male admitted 10/20/2017 due to shortness of breath, cough. He has a past medical history of rheumatoid arthritis, chronic atrial fibrillation, hypertension, hyperlipidemia, history of TIA, BPH. 1. Acute community-acquired right lower lobe pneumonia-chest x-ray on admission demonstrated right lower lobe pneumonia. Urine negative for strep and Legionella. Cefdinir 300 mg twice daily for 6 days. Follow-up with primary care physician in 1 week. Patient requires supplemental oxygen with ambulation. He is ambulatory in the home. Recommend 2 L nasal cannula of oxygen while ambulating at discharge. Maintain oxygen saturation at or above 90 %. 2. Elevated troponin/wide-complex tachycardia-suspect demand ischemia secondary to #1. Patient denies chest pain. EKG without acute changes. Patient has a history of elevated troponin in the past. Stress test in April without evidence of ischemia. Cardiology consulted due to wide-complex tachycardia. Patient was started on amiodarone drip. Patient will transition to amiodarone 200 mg daily at discharge. Patient will follow-up with Dr. Regalado 1 week. 3. Acute respiratory insufficiency suspected secondary to hypervolemia as a result of IV fluids-continue supplemental oxygen maintain O2 at or above 90%. Patient received IV Lasix ?2. Chest x-ray consistent with vascular congestion. Continue Lasix 40 mg daily p.o. at discharge. 4. Chronic atrial fibrillation-rate controlled. Continue metoprolol, Coumadin. 5. Hypertension-stable, continue home regimen including furosemide, hydrochlorothiazide, lisinopril, metoprolol. 6. Type 2 diabetes mellitus-continue home Amaryl regimen. 7. History of TIA-continue aspirin. 8. BPH-continue home Flomax regimen. 9. Rheumatoid arthritis-continue home methotrexate regimen. General: Alert, Oriented x3, Cooperative HEENT: Atraumatic, PERRLA, EOMI, Normocephalic Neck: Supple, No JVD, Negative Carotid Bruits Lungs: Diminished, fine crackles right base Cardiovascular: Murmur, - - Atrial fibrillation Abdomen: Bowel Sounds Present, Soft, Non Tender, Non-Distended Extremities: No clubbing, No cyanosis, No edema, Capillary Refill Less than 3 Seconds Skin: No rashes, No breakdown Musculoskeletal: No Tenderness to Palpation of Joints or Extremities Neurological: Cranial nerves II-XII grossly intact, Neuro grossly intact Psych/Mental Status: Normal Affect, Appropriate This patient was seen by NIXON Perez under the supervision of Dr. Rodriguez. Discharge Diet: Low fat/ Low Cholesterol Discharge Activity: Return to Normal Activity Call your doctor if you observe: Shortness of breath, Dizziness, Fainting spells , Chest pain Home Medications: Medications to take at Discharge Aspirin [Aspirin, Baby] 81 mg PO DAILY 12/31/12 Hydrochlorothiazide 25 mg PO DAILY 12/31/12 Metoprolol Tartrate [Lopressor (beta judy)] 50 mg PO BID 12/31/12 Tamsulosin HCl [Flomax] 0.4 mg PO DAILY 12/31/12 Warfarin Sodium [Coumadin] 3 mg PO DAILY 12/31/12 Amlodipine [Norvasc] 10 mg PO DAILY 09/16/16 Folic Acid 1 mg PO DAILY 09/16/16 Methotrexate 5 tab PO [place] 09/16/16 Lisinopril [Zestril] 40 mg PO DAILY #30 tab 09/20/16 potassium chloride ER 20 mEq tablet,extended release(part/cryst) 20 meq PO DAILY 90 Days #270 04/11/17 furosemide 40 mg tablet 40 mg PO DAILY #90 tab 10/11/17 Glimepiride [Amaryl] 2 mg PO DAILY 10/20/17 Lactobacillus Acidophilus [Acidophilus] 1 tablet PO DAILY 10/20/17 Amiodarone HCl [Cordarone] 200 mg PO DAILY #30 tab 10/23/17 Cefdinir [Omnicef [equiv]] 300 mg PO Q12H #12 cap 10/23/17 Following Prescrptions Were Given to Patient: Amiodarone HCl [Cordarone] 200 mg PO DAILY #30 tab Cefdinir [Omnicef [equiv]] 300 mg PO Q12H #12 cap Primary Care Physician: Kayleen Meyer MD [Primary Care Provider] - Please follow up with your Primary Care Physician in: 1 Week Please Follow Up With: Aaron Regalado MD - May see [employer]/PA When: Within 1 week Disposition: Home Minutes spent on discharge:: 35 Patient Condition:: Stable Medical Necessity - Tobacco Use Smoking Status: Never smoker Meaningful Use Info Meaningful Use Diagnoses (Choose all that apply): None applicable <Duc Rodrigueza - Last Filed: 10/23/17 15:27> Discharge Date and Diagnosis - Secondary Discharge Diagnosis Chronic Problems (Last Reviewed 10/20/17 @ 02:57 by Sagar Simpson MD) TIA (transient ischemic attack) (Chronic) Rheumatoid arthritis (Chronic) Chronic atrial fibrillation (Chronic) Benign hypertension (Chronic) Type II diabetes mellitus (Chronic) Hospital Course and Treatment Summary of Care Provided: The patient is a 82 year old M [] Code Visit Inpatient E&M: 75489 Disch Hosp
--- NOTE | 2017-10-23 13:47 | PCM.PN.CARD ---
Subjectve: Patient sitting in a chair, doing fairly well. Telemetry showed atrial fibrillation with controlled ventricular response. Objective: Vital Signs Temp Pulse Resp BP Pulse Ox 98.6 F 79 16 111/80 95 10/23/17 10:00 10/23/17 12:59 10/23/17 12:59 10/23/17 11:00 10/23/17 12:05 Oxygen Flow Rate (L/min) [ 3 AMBULATION with Oxygen] Oxygen Flow Rate (L/min) 2 Oxygen Delivery Method Room Air Weight: 193 lb 12.581 oz Body Mass Index (BMI) 26.2 Intake and Output for Last 24 Hours 10/21/17 10/22/17 10/23/17 23:59 23:59 23:59 Intake Total 1944 / 1944 2063.3 / 2063.3 521 / 521 Output Total 300 / 300 1800 / 1800 600 / 600 Balance 1644 / 1644 263.3 / 263.3 -79 / -79 General: Awake, Alert, Oriented x 3 HEENT: PERRL, EOMI, Sclera Non Icteric Neck: Supple, Good ROM, No Lymph Node Enlargement Lungs: Clear to auscultation Cardiovascular: Irregular Rhythm, Normal S1, Normal S2, No Rubs, No Gallops Murmur Murmur: Grade 2/6, Crescendo-Decrescendo Vascular: No Carotid Bruits, Normal Femoral Pulses, Normal Radial Pulses, Normal Dorsalis Pedal Pulse, Normal Posterior Tibial Pulses Abdomen: Bowel Sounds Present, Soft, Non Tender, No HSM, No Organomegaly Extremities: No Cyanosis, No Clubbing, No edema Neurological: No Focal Motor or Sensory Deficit 10/23/17 05:10: WBC 7.3, RBC 3.56 L, Hgb 10.8 L, Hct 32.3 L, MCV 90.7, MCH 30.3, MCHC 33.4, RDW 17.6 H, RDW Differential 56.5 H, Plt Count 164, MPV 11.5 10/23/17 05:10: PT 27.1 H, INR 2.5 10/23/17 05:10: Sodium 145, Potassium 3.5, Chloride 110 H, Carbon Dioxide 27.0, Anion Gap 8, BUN 13, Creatinine 0.89, Est GFR (MDRD) Af Amer 105, Est GFR (MDRD) Non-Af 87, BUN/Creatinine Ratio 14.6, Glucose 164 H, Calcium 8.1 L Rhythm: EKG: ECHO: Stress Test: Cardiac Cath: PCI: CT Surgery: Holter monitor: EPS: PPM: CXR: Chest CT Scan: Medical Necessity - Tobacco Use Smoking Status: Never smoker Assessment/Plan 1. Wide-complex tachycardia: It is uncertain whether the patient has true ventricular tachycardia versus atrial fibrillation with aberrancy. No further ventricular arrhythmias with resolution of his pneumonia. It is possible the patient may have had atrial fibrillation with aberrancy. Recommend continuing amiodarone 200 mg p.o. daily for heart rate control and ventricular suppression. I do not believe he would be a good candidate for DC cardioversion at this time. His troponins are weakly abnormal at 0.132. His most recent stress test dated 04/30/17 was negative for inducible ischemia. At this point I would hold off on diagnostic coronary angiography at this time given his dementia. I would however recommend continuing him on Lasix 40 mg a day, lisinopril 40 mg a day, metoprolol 50 mg twice daily, and amlodipine 10 mg a day. He will continue baby aspirin and Coumadin going forward. 2. Aortic stenosis: The patient had mild aortic stenosis as assessed by recent echocardiogram. No changes needed at this time. 3. Patient may be discharged home today and follow-up with Dr. Regalado going forward. 4. Thank you very much for the opportunity to participate in the cardiac care of your patient. Code Visit Inpatient E&M: 28027 Subs Hosp L2
--- NOTE | 2017-10-23 13:50 | PN.CARD_ITS ---
Subjectve: Patient sitting in a chair, doing fairly well. Telemetry showed atrial fibrillation with controlled ventricular response. Objective: Vital Signs Temp Pulse Resp BP Pulse Ox 98.6 F 79 16 111/80 95 10/23/17 10:00 10/23/17 12:59 10/23/17 12:59 10/23/17 11:00 10/23/17 12:05 Oxygen Flow Rate (L/min) [ 3 AMBULATION with Oxygen] Oxygen Flow Rate (L/min) 2 Oxygen Delivery Method Room Air Weight: 193 lb 12.581 oz Body Mass Index (BMI) 26.2 Intake and Output for Last 24 Hours 10/21/17 10/22/17 10/23/17 23:59 23:59 23:59 Intake Total 1944 / 1944 2063.3 / 2063.3 521 / 521 Output Total 300 / 300 1800 / 1800 600 / 600 Balance 1644 / 1644 263.3 / 263.3 -79 / -79 General: Awake, Alert, Oriented x 3 HEENT: PERRL, EOMI, Sclera Non Icteric Neck: Supple, Good ROM, No Lymph Node Enlargement Lungs: Clear to auscultation Cardiovascular: Irregular Rhythm, Normal S1, Normal S2, No Rubs, No Gallops Murmur Murmur: Grade 2/6, Crescendo-Decrescendo Vascular: No Carotid Bruits, Normal Femoral Pulses, Normal Radial Pulses, Normal Dorsalis Pedal Pulse, Normal Posterior Tibial Pulses Abdomen: Bowel Sounds Present, Soft, Non Tender, No HSM, No Organomegaly Extremities: No Cyanosis, No Clubbing, No edema Neurological: No Focal Motor or Sensory Deficit 10/23/17 05:10: WBC 7.3, RBC 3.56 L, Hgb 10.8 L, Hct 32.3 L, MCV 90.7, MCH 30.3 , MCHC 33.4, RDW 17.6 H, RDW Differential 56.5 H, Plt Count 164, MPV 11.5 10/23/17 05:10: PT 27.1 H, INR 2.5 10/23/17 05:10: Sodium 145, Potassium 3.5, Chloride 110 H, Carbon Dioxide 27.0, Anion Gap 8, BUN 13, Creatinine 0.89, Est GFR (MDRD) Af Amer 105, Est GFR (MDRD ) Non-Af 87, BUN/Creatinine Ratio 14.6, Glucose 164 H, Calcium 8.1 L Rhythm: EKG: ECHO: Stress Test: Cardiac Cath: PCI: CT Surgery: Holter monitor: EPS: PPM: CXR: Chest CT Scan: Medical Necessity - Tobacco Use Smoking Status: Never smoker Assessment/Plan 1. Wide-complex tachycardia: It is uncertain whether the patient has true ventricular tachycardia versus atrial fibrillation with aberrancy. No further ventricular arrhythmias with resolution of his pneumonia. It is possible the patient may have had atrial fibrillation with aberrancy. Recommend continuing amiodarone 200 mg p.o. daily for heart rate control and ventricular suppression. I do not believe he would be a good candidate for DC cardioversion at this time. His troponins are weakly abnormal at 0.132. His most recent stress test dated 04/30/17 was negative for inducible ischemia. At this point I would hold off on diagnostic coronary angiography at this time given his dementia. I would however recommend continuing him on Lasix 40 mg a day, lisinopril 40 mg a day, metoprolol 50 mg twice daily, and amlodipine 10 mg a day. He will continue baby aspirin and Coumadin going forward. 2. Aortic stenosis: The patient had mild aortic stenosis as assessed by recent echocardiogram. No changes needed at this time. 3. Patient may be discharged home today and follow-up with Dr. Regalado going forward. 4. Thank you very much for the opportunity to participate in the cardiac care of your patient. Code Visit Inpatient E&M: [id number] Subs Hosp L2
--- NOTE | 2017-10-24 15:51 | CASEMGMT ---
OLIMPIA LEVINE Discharge F/U Phone Call LACE: 11 Strata: 3 Discharge date: 10/23/17 Call date: 10/24/17 Call time: 1550 Attempted to reach pt/ at provided number multiple times with a busy signal. CM will attempt again later. SStaten OLIMPIA CM
== END 2017-10-23 14:00 | disposition home or self-care (01) | DRG 194 ==
LOC: ED 02:51 → PCU 03:24
PROVIDERS: Nurse Practitioner Family; Admitting Provider Internal Medicine; Emergency Provider Emergency Medicine; Family Provider Family Medicine; PCP Family Medicine; Visit Provider Internal Medicine
DX: J18.9 Pneumonia, unspecified organism (principal); I24.8 Other forms of acute ischemic heart disease; E87.70 Fluid overload, unspecified; I47.2 Ventricular tachycardia; I49.3 Ventricular premature depolarization; I48.2 Chronic atrial fibrillation; I10 Essential (primary) hypertension; E11.9 Type 2 diabetes mellitus without complications; Z86.73 Personal history of transient ischemic attack (TIA), and cerebral infarction without residual deficits; M06.9 Rheumatoid arthritis, unspecified; Z79.82 Long term (current) use of aspirin; E78.5 Hyperlipidemia, unspecified; N40.0 Benign prostatic hyperplasia without lower urinary tract symptoms; F03.90 Unspecified dementia, unspecified severity, without behavioral disturbance, psychotic disturbance, mood disturbance, and anxiety; I35.0 Nonrheumatic aortic (valve) stenosis
CPT/HCPCS: 36415; 36600; 71045; 71046; 80048; 81002; 82803; 82962; 83735; 84484; 85025; 85027; 85610; 85730; 87040; 87449; 87804; 93005; 94640; 97110; 97161; 97166; 97530; 97535; 99283; J7030; J7050; A4216; J1940; J8610

== ENCOUNTER → 2017-10-26 08:51 | Outpatient (CLI) | payer MEDICARE, SELFPAY ==
[2017-10-26 10:31] LABS: Anion Gap 7 (5-15); BUN 20 mg/dL (7-18); BUN/Creat Ratio 16.8 RATIO (10-20); Calcium,Total 8.8 mg/dL (8.5-10.1); Chloride 109 mmol/L (98-107); Creatinine, Serum 1.19 mg/dL (0.70-1.30); EST Glomerular Filtration Rate 62 mL/min (>60); Est Glom Filt Rate - Afr Amer 75 mL/min (>60); Glucose 223 mg/dL (74-106); Potassium 3.8 mmol/L (3.5-5.1); Sodium Level 144 mmol/L (136-145)
== END ==
PROVIDERS: Family Provider Family Medicine; PCP Family Medicine; Visit Provider Nurse Practitioner Family
DX: E83.42 Hypomagnesemia (principal); E87.6 Hypokalemia
CPT/HCPCS: 36415; 80048; 83735

== ENCOUNTER → 2017-11-05 09:36 | Outpatient (CLI) | payer MEDICARE, SELFPAY ==
--- NOTE | 2017-11-05 09:39 | RAD_ITS ---
STUDY: X-RAY CHEST REASON FOR EXAM: Male, 82 years old. Follow-up pneumonia. Persistent shortness of breath. TECHNIQUE: PA and lateral views of the chest. COMPARISON: October 21, 2017. FINDINGS: The lungs are well expanded. There is persistent density at the left lung base small pleural effusion. Stable granulomata are seen in the right lung base with resolution of the infiltrate seen at the right lung base on the prior study. The heart remains enlarged. Normal mediastinum and shantel. Normal visualized pulmonary arteries. Normal visualized aortic arch and descending thoracic aorta. There are diffuse degenerative changes of the visualized thoracic spine. There is degenerative osteoarthritis of the bilateral shoulders. There is no demonstrated abnormality of the visualized soft tissue structures of the upper abdomen. RAD/Chest PA and Lateral IMPRESSION: 1. Persistent left basilar infiltrate with resolution of the right lower lobe infiltrate since the prior study. 2. Resolution of the vascular congestion seen on the prior study. 3. Stable cardiomegaly. 4. Old granulomatous disease. Electronically Signed: Ernesto Jean Baptiste DO at 23:18 EDT Tel [phone], Service support ,
== END ==
PROVIDERS: Family Provider Family Medicine; PCP Family Medicine; Visit Provider Family Medicine
DX: J18.9 Pneumonia, unspecified organism (principal)
CPT/HCPCS: 71046

== ENCOUNTER → 2017-11-21 16:52 | Outpatient (CLI) | payer MEDICARE, SELFPAY | PROVIDERS: Family Provider Family Medicine; PCP Family Medicine; Visit Provider Family Medicine | DX: R91.8 Other nonspecific abnormal finding of lung field (principal) | CPT/HCPCS: 71260; Q9967 ==

== ENCOUNTER → 2018-01-28 10:46 | Outpatient (CLI) | payer MEDICARE, SELFPAY ==
--- NOTE | 2018-01-28 10:49 | ECHOD_ITS ---
Reason For Study: AFIB Procedure This was a 2D Doppler, Color Flow transthoracic echocardiogram. Exam performed in department. Left Ventricle Normal LV size. The estimated ejection fraction is 50 %. Unable to assess diastolic dysfunction due to arrhythmia. There is borderline global hypokinesis of the left ventricle. Right Ventricle Normal RV size. Normal systolic function. Atria The left atrium is moderately enlarged. The right atrium is moderately enlarged. Patent foramen ovale. Mitral Valve Normal mitral valve. Mild-Moderate (1-2+) eccentric mitral valve insufficiency. Tricuspid Valve Normal tricuspid valve. Mild to moderate (1-2+) tricuspid valve insufficiency. Pulmonary artery systolic pressure is 38 mmHg. Aortic Valve Trisinus/trileaflet aortic valve. Moderate focal aortic valve calcification. Peak aortic valve gradient 38 mmHg. Mean aortic valve gradient 20 mmHg. Calculated aortic valve area (continuity equation) is 1.0 cm2. Mild to moderate aortic stenosis. Mild (1+) aortic valve insufficiency. Great Vessels Calcified aortic root. The pulmonary artery is normal size. Normal inferior vena cava. Pericardium/Pleural No pericardial effusion. MMode/2D Measurements & Calculations LVIDd: 5.0 cm IVSd: 1.1 cm LVOT diam: 2.1 cm LVIDs: 3.5 cm LVPWd: 1.1 cm LVOT area: 3.4 cm2 RVDd: 4.6 cm FS: 29.7 % Ao root diam: 4.3 cm LAV(MOD-bp): 148.5 ml Aortic Valve Planimetry: 1.2 cm2 LA dimension: 5.5 cm LAV(MOD-bp) Indexed: 73.6 ml/m2 LAV(MOD-sp2): 132.0 ml LAV(MOD-sp4): 156.9 ml LA A4 area: 38.7 cm2 LA dimension(2D): 5.5 cm RA A4 area: 32.6 cm2 Time Measurements MV dec time: 0.24 sec Doppler Measurements & Calculations MV E max thad: 146.8 cm/sec Ao V2 max: 305.6 cm/sec AI max thad: 342.0 cm/sec Ao max P.4 mmHg AI max P.8 mmHg Ao V2 mean: 201.8 cm/sec AI dec slope: 166.3 cm/sec2 Ao mean P.5 mmHg AI P1/2t: 602.4 msec Ao V2 VTI: 66.8 cm JUSTYN(I,D): 1.2 cm2 JUSTYN(V,D): 1.0 cm2 LV V1 max: 91.8 cm/sec SV(LVOT): 79.2 ml PA V2 max: 111.5 cm/sec LV V1 max P.4 mmHg LV V1 mean P.9 mmHg LV V1 mean: 65.2 cm/sec LV V1 VTI: 23.2 cm TR max thad: 289.9 cm/sec TR max P.7 mmHg Interpretation Summary Normal LV size. The estimated ejection fraction is 50 %. Unable to assess diastolic dysfunction due to arrhythmia. The left atrium is moderately enlarged. The right atrium is moderately enlarged. Patent foramen ovale. Mild to moderate aortic stenosis. Calculated aortic valve area (continuity equation) is 1.0 cm2. Compared to previous study, the left ventricular systolic function has worsened.. Ordering Physician: Aaron Regalado Referring Physician: CARLIN GUNN Performed By: Donna Medrano, EMPERATRIZCS, RVT
== END ==
PROVIDERS: Family Provider Family Medicine; PCP Family Medicine; Referring Provider Internal Medicine Cardiovascular Disease; Visit Provider Internal Medicine Cardiovascular Disease
DX: I47.2 Ventricular tachycardia (principal)
CPT/HCPCS: 93306

== ENCOUNTER → 2018-05-21 15:23 | Outpatient (CLI) | payer MEDICARE, SELFPAY ==
[2018-03-14 12:59] VITALS: BMI 26.7
[2018-05-21 17:31] LABS: Absolute Lymphocyte Count 0.68 X10^3/ul (0.83-4.51); Absolute Neutrophil Count 5.5 X10^3/uL (2.0-7.7); Basophil# 0.02 X10^3/uL; Basophil% 0.3 % (0-1); Eosinophil# 0.32 X10^3/uL; Eosinophils% 4.5 % (0-5); Hematocrit 35.5 % (40-54); Hemoglobin 11.7 g/dl (13.0-16.5); Lymphocyte # 0.68 X10^3/ul (4.0); Lymphocyte % 9.6 % (19-41); Mean Corpuscular Hgb 30.7 pg (27.0-32.0); Mean Corpuscular Volume 93.2 fL (80-94); Mean Platelet Vol. 11.7 fl (6.2-12.0); Monocyte# 0.52 X10^3/uL; Monocyte% 7.3 % (0-10); Neutrophil # 5.54 X10^3/uL (2.7-7.7); Neutrophil % 78.2 % (47-70); Platelet Count 152 K/mm3 (150-450); RBC Distribution Width CV 15.9 % (11.6-14.6); RBC Distribution Width SD 53.7 fl (35.1-43.9); Red Blood Count 3.81 M/mm3 (4.6-6.2); White Blood Count 7.1 K/mm3 (4.4-11.0)
[2018-05-21 17:32] LABS: POSITIVE COUNT NO; POSITIVE DIFFERENTIAL NO; POSITIVE MORPHOLOGY NO
[2018-05-21 17:54] LABS: AST(SGOT) 19 U/L (15-37); Alanine Aminotransfer ALT/SGPT 25 U/L (16-61); Alkaline Phosphatase 109 U/L (45-117); Anion Gap 9 (5-15); BUN 24 mg/dL (7-18); BUN/Creat Ratio 17.9 RATIO (10-20); Bilirubin, Direct 0.17 mg/dL (0.00-0.30); Calcium,Total 8.4 mg/dL (8.5-10.1); Chloride 104 mmol/L (98-107); Cholesterol 111 mg/dL (200); Creatinine, Serum 1.34 mg/dL (0.70-1.30); EST Glomerular Filtration Rate 54 mL/min (>60); Est Glom Filt Rate - Afr Amer 65 mL/min (>60); Globulin 3.9 g/dL (2.2-4.2); Glucose 299 mg/dL (74-106); High Density Lipoprotein 23 mg/dL; Potassium 3.9 mmol/L (3.5-5.1); Protein, Total 6.9 g/dL (6.4-8.2); Sodium Level 138 mmol/L (136-145); Thyroid Stim Hormone (TSH) 1.91 uIU/mL (0.358-3.74); Triglycerides 138 mg/dL; Very Low Density Lipoprotein 28 mg/dL (5-40)
[2018-05-21 18:04] LABS: Microalbumin,Random Urine 31.1 mg/L (NO RANGE EST.); Microalbumin:Creatinine Ratio 24.7 mg/g CRE (<30 mg/g CRE)
== END ==
PROVIDERS: Family Provider Family Medicine; PCP Family Medicine; Visit Provider Family Medicine
DX: I50.9 Heart failure, unspecified (principal); I48.91 Unspecified atrial fibrillation; E11.9 Type 2 diabetes mellitus without complications
CPT/HCPCS: 36415; 80048; 80061; 80076; 82043; 82570; 84443; 85025

== ENCOUNTER → 2018-08-12 17:03 | Outpatient (CLI) | payer MEDICARE, SELFPAY ==
[2018-07-16 10:45] VITALS: BMI 25.2
[2018-08-12 18:10] LABS: Anion Gap 9 (5-15); BUN 25 mg/dL (7-18); BUN/Creat Ratio 21.7 RATIO (10-20); Calcium,Total 8.9 mg/dL (8.5-10.1); Chloride 101 mmol/L (98-107); Creatinine, Serum 1.15 mg/dL (0.70-1.30); EST Glomerular Filtration Rate 64 mL/min (>60); Est Glom Filt Rate - Afr Amer 78 mL/min (>60); Glucose 446 mg/dL (74-106); Potassium 4.1 mmol/L (3.5-5.1); Sodium Level 137 mmol/L (136-145)
== END ==
PROVIDERS: Family Provider Family Medicine; PCP Family Medicine; Visit Provider Family Medicine
DX: E11.9 Type 2 diabetes mellitus without complications (principal); I48.91 Unspecified atrial fibrillation
CPT/HCPCS: 36415; 80048

== ENCOUNTER → 2018-09-10 12:52 | Outpatient (CLI) | payer MEDICARE, SELFPAY ==
[2018-07-16 10:45] VITALS: BMI 25.2
[2018-09-10 14:34] LABS: International Normalized Ratio 8.1
[2018-09-10 14:38] LABS: Ferritin 647 ng/mL (26-388); Iron 22 ug/dL (65-175)
[2018-09-10 14:42] LABS: Absolute Lymphocyte Count 0.72 X10^3/ul (0.83-4.51); Absolute Neutrophil Count 11.1 X10^3/uL (2.0-7.7); Basophil# 0.02 X10^3/uL; Basophil% 0.2 % (0-1); Eosinophil# 0.37 X10^3/uL; Eosinophils% 2.9 % (0-5); Hematocrit 28.3 % (40-54); Immature Platelet Fraction 4.3 % (1.0-7.9); Lymphocyte # 0.72 X10^3/ul (4.0); Lymphocyte % 5.6 % (19-41); Mean Corp Hgb Conc 31.8 g/gl (32-36); Mean Corpuscular Hgb 26.9 pg (27.0-32.0); Mean Corpuscular Volume 84.7 fL (80-94); Monocyte# 0.72 X10^3/uL; Monocyte% 5.6 % (0-10); Neutrophil # 11.07 X10^3/uL (2.7-7.7); Neutrophil % 85.5 % (47-70); Platelet Count 248 K/mm3 (150-450); RBC Distribution Width CV 18.5 % (11.6-14.6); RBC Distribution Width SD 57.4 fl (35.1-43.9); RET-HE 23.7 pg (30-35); Red Blood Count 3.34 M/mm3 (4.6-6.2); Reticulocyte Count 2.12 % (0.5-1.5); White Blood Count 12.9 K/mm3 (4.4-11.0)
[2018-09-10 14:47] LABS: POSITIVE COUNT NO; POSITIVE DIFFERENTIAL NO; POSITIVE MORPHOLOGY NO
== END ==
PROVIDERS: Family Provider Family Medicine; PCP Family Medicine; Referring Provider Family Medicine; Visit Provider Family Medicine
DX: D64.9 Anemia, unspecified (principal); I48.91 Unspecified atrial fibrillation
CPT/HCPCS: 36415; 82728; 83540; 85025; 85045; 85610

== ENCOUNTER 2018-09-10 15:33 | Observation (INO) | payer MEDICARE, SELFPAY ==
[2018-07-16 10:45] VITALS: BMI 25.2
[2018-09-10] VITALS (8 sets, daily range): BP systolic 115–133; BP diastolic 56–69; PULSE 66–84; RESP 16–18; TEMP 36.3–36.8; O2SAT 95–99; BMI 24.5; BMI 23.9
--- NOTE | 2018-09-10 16:00 | EKG12_ITS ---
Test Reason : ABNL LABS Blood Pressure : / mmHG Vent. Rate : 076 BPM Atrial Rate : 045 BPM P-R Int : 000 ms QRS Dur : 164 ms QT Int : 466 ms P-R-T Axes : 000 -39 -23 degrees QTc Int : 524 ms Atrial fibrillation with ventricular escape complexes Left axis deviation Right bundle branch block Abnormal ECG Confirmed by MESFIN CHERRY ([id number]), editor book KATEY LIGHT ([id number]) on 09/12/2018 11:48:38 AM Referred By: Kayleen Meyer Confirmed By:YRN CHERRY
--- NOTE | 2018-09-10 16:02 | ED.VISSUMM ---
- ER Visit Summary Date of Service: 09/10/18 Chief Complaint: Abnormal labs History of Present Illness: The patient is a 83 M presenting with abnormal labs. Patient was sent by Dr. Meyer today. He had a hemoglobin that was 8.1 drawn as an outpatient. He complains of generalized weakness. Also complains of intermittent midsternal chest pain. He states that this has been ongoing for couple of months but worsened today. He complains of feeling weak and tired. He is on Coumadin for history of A. fib. He denies black or bloody stools. Denies other complaints. Physical Examination: Vitals are stable. Patient is afebrile. Alert no acute distress. HEENT exam is unremarkable. Neck is supple. Lungs are clear and equal bilaterally. Heart is irregularly irregular Abdomen is soft nontender nondistended. Extremities are unremarkable. Skin is warm and dry. No focal neurologic deficit. Remainder of exam is unremarkable. Emergency Department Course and Treatment: EKG shows A. fib with right bundle branch block. CBC shows white count 11.9, hemoglobin 9.3. Glucose 155. INR 8.3. Troponin 0.032. Stool is guaiac negative. Chest x-ray shows cardiomegaly. Patient is resting comfortably on reevaluation. Discussed with the hospitalist for observation. Disposition: Observation Impression: Chest pain, supratherapeutic INR This note was generated with [employer] dictation software. It may contain incorrect words, spelling, and punctuation that were not noted in review of the chart prior to signing ED Disposition - Plan for ED Patient: Referrals: Kayleen Meyer MD [Primary Care Provider] -
[2018-09-10 16:14] LABS: Absolute Lymphocyte Count 0.66 X10^3/ul (0.83-4.51); Absolute Neutrophil Count 10.1 X10^3/uL (2.0-7.7); Basophil# 0.01 X10^3/uL; Basophil% 0.1 % (0-1); Eosinophil# 0.43 X10^3/uL; Eosinophils% 3.6 % (0-5); Hematocrit 29.2 % (40-54); Hemoglobin 9.3 g/dl (13.0-16.5); Lymphocyte # 0.66 X10^3/ul (4.0); Lymphocyte % 5.6 % (19-41); Mean Corp Hgb Conc 31.8 g/gl (32-36); Mean Corpuscular Volume 84.6 fL (80-94); Mean Platelet Vol. 9.9 fl (6.2-12.0); Monocyte# 0.66 X10^3/uL; Monocyte% 5.6 % (0-10); Neutrophil # 10.09 X10^3/uL (2.7-7.7); Neutrophil % 84.9 % (47-70); Platelet Count 232 K/mm3 (150-450); RBC Distribution Width CV 18.5 % (11.6-14.6); RBC Distribution Width SD 56.7 fl (35.1-43.9); Red Blood Count 3.45 M/mm3 (4.6-6.2); White Blood Count 11.9 K/mm3 (4.4-11.0)
[2018-09-10 16:16] LABS: POSITIVE COUNT NO; POSITIVE DIFFERENTIAL NO; POSITIVE MORPHOLOGY NO
--- NOTE | 2018-09-10 16:16 | RAD_ITS ---
STUDY: X-RAY CHEST REASON FOR EXAM: Male, 83 years old. Abnormal labs. TECHNIQUE: Single AP portable view of the chest. COMPARISON: November 05, 2017 FINDINGS: The lungs are clear and expanded. There are granulomatous calcifications. There is no demonstrated pleural abnormality. There is mild cardiac enlargement. There are calcified mediastinal lymph nodes. Normal visualized pulmonary arteries. There is atherosclerotic calcification of the aortic arch with tortuosity. There is demineralization of the osseous structures. There is degenerative osteoarthritis of the bilateral shoulders. There is no demonstrated abnormality of the visualized soft tissue structures of the upper abdomen. RAD/Chest 1 View (Portable) IMPRESSION: Cardiac enlargement. No focal infiltrate or edema. Electronically Signed: Meir Bhatia MD at 16:40 EDT , Service support ,
[2018-09-10 16:28] LABS: Prothrombin Time (Protime)PT. 70.9 SECONDS (11.7-14.9)
[2018-09-10 16:32] LABS: Anion Gap 5 (5-15); BUN 19 mg/dL (7-18); BUN/Creat Ratio 18.3 RATIO (10-20); Calcium,Total 8.7 mg/dL (8.5-10.1); Chloride 103 mmol/L (98-107); Creatinine, Serum 1.04 mg/dL (0.70-1.30); EST Glomerular Filtration Rate 72 mL/min (>60); Est Glom Filt Rate - Afr Amer 87 mL/min (>60); Estimated Creatinine Clearance 56.31 ml/min; Glucose 155 mg/dL (74-106); Potassium 4.7 mmol/L (3.5-5.1); Sodium Level 136 mmol/L (136-145)
[2018-09-10 16:34] LABS: International Normalized Ratio 8.3
--- NOTE | 2018-09-10 16:34 | ED.RN ---
lab called critical of INR 8.3. dr Muhammad aware
--- NOTE | 2018-09-10 17:02 | NURSING ---
PCU OBS PAINTSIL CP, SUPRATHERAPEUTIC INR
--- NOTE | 2018-09-10 17:20 | NURSING ---
DR TOMAS IN ER
--- NOTE | 2018-09-10 17:34 | HP.PCM_ITS ---
<Christina Jones - Last Filed: 09/10/18 17:48> Problem List (1) Wide-complex tachycardia Status: Resolved (2) History of knee replacement Status: Resolved Comment: Bilateral (3) Hx of hernia repair Status: Resolved (4) TIA (transient ischemic attack) Status: Chronic (5) Aspiration pneumonia Status: Resolved (6) Rheumatoid arthritis Status: Chronic (7) Chronic atrial fibrillation Status: Chronic (8) Benign hypertension Status: Chronic (9) Type II diabetes mellitus Status: Chronic History of Present Illness Date of Admission: 09/10/18 Chief Complaint: Low blood count. The patient is a 83 year old M who presents emergency room due to low blood counts. Patient is a poor historian and at bedside provides much of HPI. He reports he had blood work done at his thermometer maker and was notified his blood count was low. He then had repeat blood work by primary care provider who sent him to the emergency room for further evaluation. He states he has had shoulder pain and chest wall pain with movement and rolling back and forth in bed for several months. Denies chest pressure, shortness of breath, dizziness, lightheadedness. Denies active or new chest pain currently. He denies blood in stool. Denies emesis. States he has been in his normal state of health. Does report he was recently started on long-acting insulin and has had upset stomach following injection. He has a past medical history of type 2 diabetes mellitus, chronic normocytic anemia, chronic atrial fibrillation on anticoagulation with Coumadin, hypertension, history of TIA, BPH, rheumatoid arthritis. Past Medical History Past Medical History (Chronic Problems): Chronic Problems (Last Reviewed 07/16/18 @ 10:58 by Aaron Regalado MD) TIA (transient ischemic attack) (Chronic) Rheumatoid arthritis (Chronic) Chronic atrial fibrillation (Chronic) Benign hypertension (Chronic) Type II diabetes mellitus (Chronic) Medical History: Medical History (Last Reviewed 07/16/18 @ 10:58 by Aaron Regalado MD) Wide-complex tachycardia (Acute) I47.2 TIA (transient ischemic attack) (Chronic) G45.9 Rheumatoid arthritis (Chronic) M06.9 Chronic atrial fibrillation (Chronic) I48.2 Benign hypertension (Chronic) I10 Type II diabetes mellitus (Chronic) E11.9 Allergies No Known Allergies Allergy (Verified 09/10/18 15:38) Home Medications: Ambulatory Orders Medication Instructions Recorded Aspirin [Aspirin, Baby] 81 mg PO DAILY 12/31/12 Hydrochlorothiazide 25 mg PO DAILY 12/31/12 Metoprolol Tartrate [Lopressor 50 mg PO BID 12/31/12 (beta judy)] Tamsulosin HCl [Flomax] 0.4 mg PO DAILY 12/31/12 Warfarin Sodium [Coumadin] 3 mg PO DAILY 12/31/12 Folic Acid 1 mg PO DAILY 09/16/16 Methotrexate 12.5 tab PO [place] 09/16/16 potassium chloride ER 20 mEq 20 meq PO DAILY 90 Days #270 04/11/17 tablet,extended release(part/cryst) Glimepiride [Amaryl] 4 mg PO DAILY 10/20/17 L.acidophil,salivari-Bifido 1 cap PO DAILY 03/14/18 bifidum-Strep thermoph 175 mg capsule ferrous sulfate 325 mg (65 mg 325 mg PO DAILY tab 03/14/18 iron) tablet Furosemide [Lasix] 40 mg PO MOWEFR 09/10/18 Insulin Glargine [Lantus (BKC)] 15 units SC DAILY 09/10/18 Lisinopril [Zestril] 40 mg PO DAILY 09/10/18 Surgical History: Surgical History (Last Reviewed 07/16/18 @ 10:58 by Aaron Regalado MD) History of knee replacement (Resolved) Z96.659 Bilateral Hx of hernia repair (Resolved) Z98.890, Z87.19 History of cholecystectomy Onset Date: ~05/2012 Z98.890, Z90.49 Surgical History: cholecystectomy, herniorrhaphy, - - Bilateral knee replacement Psychiatric History: No pertinent psych hx Lives: Spouse/ Significant Other Smoking Status: Never smoker Alcohol: None Drugs: None - *Family History Maternal Family History: Family History (Last Reviewed 09/10/18 @ 17:35 by NIXON Perez) Mother Diabetes Heart disease Father No problems noted. Sister Heart disease Diabetes Paternal Family History: Family History (Last Reviewed 09/10/18 @ 17:35 by NIXON Perez) Mother Diabetes Heart disease Father No problems noted. Sister Heart disease Diabetes Review of Systems Constitutional: Denies: Chills, Fever, Weight Change HEENT: Denies: Head Aches, Sinus Congestion, Sinus Drainage Cardiovascular: Denies: Chest Pain, Edema, Palpitations, Syncope Respiratory: Denies: Cough, Shortness of breath at rest, Sputum production Gastrointestinal: Denies: Abdominal Pain, Nausea, Vomiting Genitourinary: Denies: Dysuria Musculoskeletal: Denies: Joint Pain, Joint Tenderness Skin: Denies: Rash, Wounds Neurological: Denies: Numbness, Tingling, Focal weakness Psychiatric: Denies: Anxiety, Depression, Homicidal Ideations, Suicidal Ideations Hematologic/ Lymphatic: Denies: Easy Bruising, Easy Bleeding VTE Information - Inpt Only VTE Present on Admission: No VTE Mechan Device Prophylaxis: None VTE Pharm Prophylaxis ordered?: Yes - Physical Exam General: Alert, Oriented x3, Cooperative HEENT: Atraumatic, PERRLA, EOMI, Normocephalic Neck: Supple, No JVD, Negative Carotid Bruits Lungs: Clear to auscultation, Normal air movement Cardiovascular: Regular rate, Regular Rhythm, Normal S1, Normal S2, No murmurs Abdomen: Bowel Sounds Present, Soft, Non Tender, Non-Distended Extremities: No clubbing, No cyanosis, No edema, Capillary Refill Less than 3 Seconds Skin: No rashes, No breakdown Musculoskeletal: No Tenderness to Palpation of Joints or Extremities Neurological: Cranial nerves II-XII grossly intact, Neuro grossly intact Psych/Mental Status: Normal Affect, Appropriate Vital Signs Temp Pulse Resp BP Pulse Ox 97.4 F L 70 18 133/67 H 97 09/10/18 15:35 09/10/18 17:18 09/10/18 17:18 09/10/18 17:18 09/10/18 17:18 Oxygen Delivery Method Room Air Weight: 176 lb Body Mass Index (BMI) 24.5 Microbiology Past 72 Hours 09/10/18 16:10 Stool Occult Blood (DANAE) - Final Stool Laboratory Tests Past 24 Hrs 09/10/18 09/10/18 09/10/18 16:00 16:00 16:00 WBC 11.9 H RBC 3.45 L Hgb 9.3 L Hct 29.2 L MCV 84.6 MCH 27.0 MCHC 31.8 L RDW 18.5 H RDW Differential 56.7 H Plt Count 232 MPV 9.9 Immature Gran % (Auto) 0.200 Neut % (Auto) 84.9 H Lymph % (Auto) 5.6 L [place] % (Auto) 5.6 Eos % (Auto) 3.6 Baso % (Auto) 0.1 Absolute Neuts (auto) 10.1 H Absolute Lymphs (auto) 0.66 L Total Counted Not Reportable PT 70.9 H INR 8.3 H* Sodium 136 Potassium 4.7 Chloride 103 Carbon Dioxide 28.0 Anion Gap 5 BUN 19 H Creatinine 1.04 Estim Creat Clear Calc 56.31 Est GFR (MDRD) Af Amer 87 Est GFR (MDRD) Non-Af 72 BUN/Creatinine Ratio 18.3 Glucose 155 H Calcium 8.7 Troponin I 0.032 Assessment/Plan All Active Problems (Last Reviewed 07/16/18 @ 10:58 by Aaron Regalado MD) History of knee replacement (Resolved) Hx of hernia repair (Resolved) Aspiration pneumonia (Resolved) Wide-complex tachycardia (Resolved) 1. Generalized weakness, musculoskeletal chest pain-patient reports chest discomfort and shoulder discomfort with movement ongoing for several months. Trend enzymes. Chest x-ray admission showed cardiomegaly. EKG atrial fibrillation with right bundle branch block. Troponin 0.032. Trend enzymes. PT/OT. 2. Supratherapeutic INR-hold Coumadin, trend INR. 3. Chronic normocytic anemia/iron deficiency anemia-Baseline hemoglobin around 10. Hemoglobin on admission 9.3. Trend CBC. Stool for occult blood negative. 4. Chronic atrial fibrillation-rate controlled. Continue metoprolol. Coumadin on hold due to supratherapeutic INR. 5. Hypertension-stable, continue home regimen including furosemide, hydrochlorothiazide, lisinopril, metoprolol. 6. Type 2 diabetes mellitus-continue home Amaryl, lantus regimen. Accu-Cheks ACHS. 7. History of TIA-continue aspirin. 8. BPH-continue home Flomax regimen. 9. Rheumatoid arthritis-continue home methotrexate regimen. DVT prophylaxis- Coumadin, on hold This patient was seen by NIXON Perez under the supervision of Dr. Rodriguez. <Janna Rodriguez - Last Filed: 09/10/18 21:47> History of Present Illness The patient is a 83 year old M [] Past Medical History Medical History: Medical History (Last Reviewed 07/16/18 @ 10:58 by Aaron Regalado MD) Wide-complex tachycardia (Acute) I47.2 TIA (transient ischemic attack) (Chronic) G45.9 Rheumatoid arthritis (Chronic) M06.9 Chronic atrial fibrillation (Chronic) I48.2 Benign hypertension (Chronic) I10 Type II diabetes mellitus (Chronic) E11.9 Allergies No Known Allergies Allergy (Verified 09/10/18 15:38) Surgical History: Surgical History (Last Reviewed 07/16/18 @ 10:58 by Aaron Regalado MD) History of knee replacement (Resolved) Z96.659 Bilateral Hx of hernia repair (Resolved) Z98.890, Z87.19 History of cholecystectomy Onset Date: ~05/2012 Z98.890, Z90.49 - *Family History Maternal Family History: Family History (Last Reviewed 09/10/18 @ 17:35 by NIXON Perez) Mother Diabetes Heart disease Father No problems noted. Sister Heart disease Diabetes Paternal Family History: Family History (Last Reviewed 09/10/18 @ 17:35 by NIXON Perez) Mother Diabetes Heart disease Father No problems noted. Sister Heart disease Diabetes - Physical Exam Vital Signs Temp Pulse Resp BP Pulse Ox 98.3 F 78 16 115/56 L 95 09/10/18 21:31 09/10/18 21:33 09/10/18 21:31 09/10/18 21:33 09/10/18 21:31 Oxygen Delivery Method Room Air Weight: 77.5 kg Body Mass Index (BMI) 23.9 Intake and Output for Last 24 Hours 09/08/18 09/09/18 09/10/18 23:59 23:59 23:59 Intake Total 240 / 240 Balance 240 / 240 Microbiology Past 72 Hours 09/10/18 16:10 Stool Occult Blood (DANAE) - Final Stool Laboratory Tests Past 24 Hrs 09/10/18 09/10/18 09/10/18 16:00 16:00 16:00 WBC 11.9 H RBC 3.45 L Hgb 9.3 L Hct 29.2 L MCV 84.6 MCH 27.0 MCHC 31.8 L RDW 18.5 H RDW Differential 56.7 H Plt Count 232 MPV 9.9 Immature Gran % (Auto) 0.200 Neut % (Auto) 84.9 H Lymph % (Auto) 5.6 L [place] % (Auto) 5.6 Eos % (Auto) 3.6 Baso % (Auto) 0.1 Absolute Neuts (auto) 10.1 H Absolute Lymphs (auto) 0.66 L Total Counted Not Reportable PT 70.9 H INR 8.3 H* Sodium 136 Potassium 4.7 Chloride 103 Carbon Dioxide 28.0 Anion Gap 5 BUN 19 H Creatinine 1.04 Estim Creat Clear Calc 56.31 Est GFR (MDRD) Af Amer 87 Est GFR (MDRD) Non-Af 72 BUN/Creatinine Ratio 18.3 Glucose 155 H Calcium 8.7 Troponin I 0.032 09/10/18 19:30 WBC RBC Hgb Hct MCV MCH MCHC RDW RDW Differential Plt Count MPV Immature Gran % (Auto) Neut % (Auto) Lymph % (Auto) [place] % (Auto) Eos % (Auto) Baso % (Auto) Absolute Neuts (auto) Absolute Lymphs (auto) Total Counted PT INR Sodium Potassium Chloride Carbon Dioxide Anion Gap BUN Creatinine Estim Creat Clear Calc Est GFR (MDRD) Af Amer Est GFR (MDRD) Non-Af BUN/Creatinine Ratio Glucose Calcium Troponin I 0.037 Assessment/Plan This patient was seen in conjunction with Christina Jones. I have independently interviewed and examined the patient and reviewed pertinent historical, laboratory, and other data. I have reviewed her note and concur with her documentation CC: Abnormal blood work HPI: 83-year-old male sent to the emergency department with abnormal blood counts. Patient had routine work done with his thermometer maker and PCP and was asked to go to the emergency department because his blood count was low. In the emergency department, he complains of chest wall pain as well as shoulder pain that is worse with movement and this has been ongoing for several months. Denied any shortness of breath dizziness or lightheadedness. He denied any melena stools or hematemesis. He admits to being active. PMHX: History of type II DM, hypertension, chronic atrial fibrillation on Coumadin PSHx: Status post cholecystectomy, herniorrhaphy, bilateral knee replacement FHX: Mother had heart disease, father had no pertinent history SHX: Patient does not smoke or use alcohol use illicit drugs Physical Exam: Vitals: Temperature was 97.4F, heart rate 83, blood pressure 121/69, respiratory rate 16, SPO2 is 97% on room air Gen: Appears comfortable, not in pain, not pale, not jaundiced CVS:HS I +II, regular, no murmurs RESP: Clinically clear to auscultation GI: BS present and normal, soft, nontender, no palpable organs EXT:No edema Labs: WC count 11.9, hemoglobin 9.3, platelet count is 232, INR is 8.3, BMP is unremarkable, troponin 0 0.037 ASSESSMENT: 1. Supra therapeutic INR 2. Chest pain 3. Generalized weakness 4. Hypertension 5. Type II DM 6. History of TIA 7. RA Plan: Admit to PCU, trend troponins 2D echo Hold Coumadin, repeat blood work in a.m. Continue on Amaryl, recheck with insulin sliding scale Would hold off doing stress test, needs to be reevaluated in the morning Code Visit Inpatient E&M: [id number] Init Hosp L3
--- NOTE | 2018-09-10 17:43 | ECHOD_ITS ---
Version 2 Reason For Study: Dyspnea/SOB Procedure This was a 2D Doppler, Color Flow transthoracic echocardiogram. Exam performed portable in patient room. Left Ventricle Normal LV size. Moderate concentric left ventricular hypertrophy. The estimated ejection fraction is 45 %. Unable to assess diastolic dysfunction due to arrhythmia. There is mild to moderate global hypokinesis of the left ventricle. Right Ventricle Normal RV size. Normal systolic function. Atria The left atrium is moderately enlarged. The right atrium is moderately enlarged. Mitral Valve Bileaflet diffuse mitral valve thickening. Mild-Moderate (1-2+) eccentric mitral valve insufficiency. Tricuspid Valve Normal tricuspid valve. Mild (1+) tricuspid valve insufficiency. Pulmonary artery systolic pressure is 32 mmHg. Aortic Valve Trisinus/trileaflet aortic valve. Moderate focal aortic valve calcification. Peak aortic valve gradient 34 mmHg. Mean aortic valve gradient 17 mmHg. Moderate aortic stenosis. Calculated aortic valve area (continuity equation) is 1.0 cm2. Mild (1+) eccentric aortic valve insufficiency. Pulmonic Valve Normal pulmonic valve. Great Vessels Normal aortic root. The pulmonary artery is normal size. Normal inferior vena cava. Pericardium/Pleural No pericardial effusion. MMode/2D Measurements & Calculations LVIDd: 4.3 cm IVSd: 1.7 cm LVOT diam: 2.0 cm LVIDs: 3.0 cm LVPWd: 1.4 cm LVOT area: 3.3 cm2 FS: 30.4 % LA dimension: 4.7 cm LAV(MOD-bp): 107.6 ml LA A4 area: 30.0 cm2 LAV(MOD-bp) Indexed: 54.7 ml/m2 LAV(MOD-sp2): 96.1 ml LAV(MOD-sp4): 112.4 ml RA A4 area: 29.6 cm2 Time Measurements MV dec time: 0.20 sec Doppler Measurements & Calculations MV E max thad: 123.0 cm/sec MV V2 max: 163.7 cm/sec MV P1/2t max thad: 164.7 cm/sec MV A max thda: 29.0 cm/sec MV max P.7 mmHg MV P1/2t: 98.8 msec MV E/A: 4.2 MV V2 mean: 78.7 cm/sec MV dec slope: 488.3 cm/sec2 MV mean P.1 mmHg MV V2 VTI: 42.6 cm MVA(P1/2t): 2.2 cm2 MVA(VTI): 1.4 cm2 Ao V2 max: 294.8 cm/sec AI max thad: 362.4 cm/sec LV V1 max: 87.8 cm/sec Ao max P.8 mmHg AI max P.5 mmHg LV V1 max P.1 mmHg Ao V2 mean: 185.6 cm/sec LV V1 mean P.3 mmHg Ao mean P.4 mmHg AI dec slope: 214.2 cm/sec2 LV V1 mean: 52.1 cm/sec Ao V2 VTI: 66.3 cm AI P1/2t: 495.6 msec LV V1 VTI: 17.9 cm JUSTYN(I,D): 0.88 cm2 JUSTYN(V,D): 0.97 cm2 MR max thad: 600.9 cm/sec SV(LVOT): 58.5 ml PA V2 max: 97.3 cm/sec MR max P.4 mmHg MR mean thad: 433.0 cm/sec MR mean P.7 mmHg MR VTI: 210.6 cm TR max thad: 261.7 cm/sec TR max P.5 mmHg Interpretation Summary Normal LV size. The estimated ejection fraction is 45 %. There is mild to moderate global hypokinesis of the left ventricle. The left atrium is moderately enlarged. Mean aortic valve gradient 17 mmHg. Moderate aortic stenosis. Calculated aortic valve area (continuity equation) is 1.0 cm2. Unable to assess diastolic dysfunction due to arrhythmia. Mild-Moderate (1-2+) eccentric mitral valve insufficiency. Compared to prior study, there is no significant change. Ordering Physician: Janna Rodriguez Referring Physician: Kayleen Meyer M.D. Performed By: Donal Galloway RCS
--- NOTE | 2018-09-10 17:43 | EKG12_ITS ---
Test Reason : CP ADMISSION Blood Pressure : / mmHG Vent. Rate : 078 BPM Atrial Rate : 108 BPM P-R Int : 000 ms QRS Dur : 166 ms QT Int : 466 ms P-R-T Axes : 000 -42 -28 degrees QTc Int : 531 ms Atrial fibrillation with premature ventricular or aberrantly conducted complexes Left axis deviation Right bundle branch block Abnormal ECG When compared with ECG of 22-OCT-2017 04:37, No significant change was found Confirmed by ARTURO BARRETT, CHANDA ([id number]), features editor KATEY LIGHT ([id number]) on 09/12/2018 11:59:03 AM Referred By: Kayleen Meyer Confirmed By:CHANDA MORRIS MD
--- NOTE | 2018-09-10 18:13 | CASEMGMT ---
RN CM Assessment Introduced role of RN CM to patient and Nabila at bedside.? Patient is alert, oriented and able?to participate in RN CM Assessment. ?Information obtained from Nabila as patient was being prepped to go to bed on floor. Care providers, pharmacy, and demographics verified. Presentation: Generalized Weakness and intermittent CP, Sent by PCP- had outpt test Hgb 8.1. Admit Dx: CP Re-Admit: No Barriers/Issues: None PCP: Kayleen Garcia Specialists: Cardio- Dr Regalado, Arthritis- Dr Watkins in [facility] Rx Benefit:?Yes [facility]NO[facility]: Nabila Coleman LW/HPOA: Yes both on file at [facility]- Nabila Coleman Living Arrangements:?Lives with in a SS home, 3 steps to enter with railings ADL?s: Independent with ambulation and ADL's Transportation: Patient drives, upon DC DME: None HHC: None SNF: None Goal: Home, does not think will have any needs on DC, however is open to HH PT if recommended if still weak. DC PLAN: Home with possible HH PT. TRISTAN Howe
[2018-09-10] MEDS: Metoprolol Tartrate 50 MG Tablet PO (21:33)
[2018-09-10 23:36] LABS: Bedside Glucose 148 mg/dL (70-110)
[2018-09-11] VITALS (9 sets, daily range): BP systolic 110–133; BP diastolic 62–84; PULSE 57–90; RESP 16–18; TEMP 36.4–36.8; O2SAT 91–100
[2018-09-11 06:01] LABS: Absolute Lymphocyte Count 0.64 X10^3/ul (0.83-4.51); Absolute Neutrophil Count 10.1 X10^3/uL (2.0-7.7); Basophil# 0.03 X10^3/uL; Basophil% 0.2 % (0-1); Eosinophil# 0.47 X10^3/uL; Eosinophils% 3.9 % (0-5); Hematocrit 28.6 % (40-54); Hemoglobin 9.1 g/dl (13.0-16.5); Lymphocyte # 0.64 X10^3/ul (4.0); Lymphocyte % 5.3 % (19-41); Mean Corp Hgb Conc 31.8 g/gl (32-36); Mean Corpuscular Volume 84.9 fL (80-94); Monocyte# 0.85 X10^3/uL; Neutrophil # 10.07 X10^3/uL (2.7-7.7); Neutrophil % 83.4 % (47-70); Platelet Count 246 K/mm3 (150-450); RBC Distribution Width CV 18.4 % (11.6-14.6); RBC Distribution Width SD 56.8 fl (35.1-43.9); Red Blood Count 3.37 M/mm3 (4.6-6.2); White Blood Count 12.1 K/mm3 (4.4-11.0)
[2018-09-11 06:05] LABS: POSITIVE COUNT NO; POSITIVE DIFFERENTIAL NO; POSITIVE MORPHOLOGY NO
[2018-09-11 06:18] LABS: Anion Gap 8 (5-15); BUN 17 mg/dL (7-18); BUN/Creat Ratio 20.2 RATIO (10-20); Calcium,Total 8.5 mg/dL (8.5-10.1); Chloride 106 mmol/L (98-107); Creatinine, Serum 0.84 mg/dL (0.70-1.30); EST Glomerular Filtration Rate 92 mL/min (>60); Est Glom Filt Rate - Afr Amer 112 mL/min (>60); Estimated Creatinine Clearance 67.59 ml/min; Glucose 96 mg/dL (74-106); Potassium 4.1 mmol/L (3.5-5.1); Sodium Level 141 mmol/L (136-145)
[2018-09-11 06:43] LABS: International Normalized Ratio 7.8
[2018-09-11 07:10] LABS: Bedside Glucose 82 mg/dL (70-110)
[2018-09-11] MEDS: Folic Acid 1 MG Tablet PO (08:06)
[2018-09-11] MEDS: hydroCHLOROthiazide 25 MG Tablet PO (08:06)
[2018-09-11] MEDS: Lisinopril 40 MG Tablet PO (08:06)
[2018-09-11] MEDS: Glimepiride 4 MG Tablet PO (08:06)
[2018-09-11] MEDS: Metoprolol Tartrate 50 MG Tablet PO (08:06)
[2018-09-11] MEDS: 0.9% NaCl Peripheral Flush Adult/Peds IV ×2 (09:58→11:02)
[2018-09-11] MEDS: Ferrous Sulfate 325 MG Tablet PO (11:02)
[2018-09-11 11:10] LABS: Bedside Glucose 132 mg/dL (70-110)
--- NOTE | 2018-09-11 11:47 | DCINST_ITS ---
You will use the following diet at home:: Cardiac Discharge Activity: Return to Normal Activity Call your doctor if you observe: Shortness of breath, Dizziness, Fainting spells, Chest pain Additional Instructions: Your Coumadin was discontinued. You will have repeat INR with primary care provider on 09/13/2018. When INR is further decreased, discussed with Dr. Meyer initiating Eliquis or Xarelto in place of Coumadin which will further be discussed at outpatient follow-up. You may need additional GI evaluation for your anemia as outpatient as well which will be arranged by primary care provider. Allergies/Adverse Reactions: Allergies No Known Allergies Allergy (Verified 09/10/18 15:38) Medications to take at Discharge Aspirin [Aspirin, Baby] 81 mg PO DAILY 12/31/12 Hydrochlorothiazide 25 mg PO DAILY 12/31/12 Metoprolol Tartrate [Lopressor (beta judy)] 50 mg PO BID 12/31/12 Tamsulosin HCl [Flomax] 0.4 mg PO DAILY 12/31/12 Folic Acid 1 mg PO DAILY 09/16/16 Methotrexate 12.5 tab PO [place] 09/16/16 potassium chloride ER 20 mEq tablet,extended release(part/cryst) 20 meq PO DAILY 90 Days #270 04/11/17 Glimepiride [Amaryl] 4 mg PO DAILY 10/20/17 L.acidophil,salivari-Bifido bifidum-Strep thermoph 175 mg capsule 1 cap PO DAILY 03/14/18 ferrous sulfate 325 mg (65 mg iron) tablet 325 mg PO DAILY tab 03/14/18 Furosemide [Lasix] 40 mg PO MOWEFR 09/10/18 Insulin Glargine [Lantus SoloStar Pen] 15 units SC DAILY 09/10/18 Lisinopril [Zestril] 40 mg PO DAILY 09/10/18 Primary Care Physician: Kayleen Meyer MD [Primary Care Provider] - Please follow up with your Primary Care Physician in: 09/13/18 for INR check and follow up, call for appt Test Results: Test results from this visit will be discussed in further detail at your follow- up appointment, if applicable. Proposed Discharge Date: 09/11/18
--- NOTE | 2018-09-11 12:24 | DS.PCM_ITS ---
Discharge Date and Diagnosis Date of Admission: 09/10/18 Date of Discharge: 09/11/18 - Primary Discharge Diagnosis 1. Musculoskeletal chest pain 2. Supratherapeutic INR 3. Chronic normocytic anemia/iron deficiency anemia 4. Chronic atrial fibrillation 5. Hypertension 6. Type 2 diabetes mellitus 7. History of TIA 8. BPH 9. Rheumatoid arthritis - Secondary Discharge Diagnosis Chronic Problems (Last Reviewed 07/16/18 @ 10:58 by Aaron Regalado MD) TIA (transient ischemic attack) (Chronic) Rheumatoid arthritis (Chronic) Chronic atrial fibrillation (Chronic) Benign hypertension (Chronic) Type II diabetes mellitus (Chronic) Hospital Course and Treatment Imaging Results: Diagnostic Data Chest X-Ray 09/10/18 16:16 IMPRESSION: Cardiac enlargement. No focal infiltrate or edema. Electronically Signed: Meir Bhatia MD at 16:40 EDT , Service support , Operations: None Procedures: 2-D Echocardiogram Summary of Care Provided: The patient is a 83 year old M admitted 09/10/2017 due to low blood count. 1. Musculoskeletal chest pain, generalized weakness-patient reports chest discomfort and shoulder discomfort with movement ongoing for several months. Troponin negative. Chest x-ray admission showed cardiomegaly. EKG atrial fibrillation with right bundle branch block. Echocardiogram showed an EF of 45%, moderate aortic stenosis, mild to moderate mitral valve insufficiency. No change compared to prior echo. ACS ruled out. Patient follows with Dr. Regalado. Continue outpatient follow-up with cardiology as scheduled. Follow-up with primary care provider in 1 week. PT evaluation pending and will evaluate home-going needs prior to discharge. 2. Supratherapeutic INR-Coumadin on hold. INR trending down, 7.8 at discharge. Patient will have repeat INR in 2 days, 09/13/2017 at primary care physician office. Discussed with primary care provider regarding discontinuing Coumadin going forward and initiating novel anticoagulants such as Eliquis or Xarelto. This will be further discussed at primary care follow-up. 3. Chronic normocytic anemia/iron deficiency anemia-Baseline hemoglobin around 10. Hemoglobin on admission 9.3. Stool for occult blood negative. Ferrous sulfate 325 mg daily. 4. Chronic atrial fibrillation-rate controlled. Continue metoprolol. Coumadin on hold due to supratherapeutic INR. 5. Hypertension-stable, continue home regimen including furosemide, hydrochlorothiazide, lisinopril, metoprolol. 6. Type 2 diabetes mellitus-continue home Amaryl, lantus regimen. 7. History of TIA-continue aspirin. 8. BPH-continue home Flomax regimen. 9. Rheumatoid arthritis-continue home methotrexate regimen. General: Alert, Oriented x3, Cooperative HEENT: Atraumatic, PERRLA, EOMI, Normocephalic Neck: Supple, No JVD, Negative Carotid Bruits Lungs: Clear to auscultation, Normal air movement Cardiovascular: Regular rate, Regular Rhythm, Normal S1, Normal S2, No murmurs Abdomen: Bowel Sounds Present, Soft, Non Tender, Non-Distended Extremities: No clubbing, No cyanosis, No edema, Capillary Refill Less than 3 Seconds Skin: No rashes, No breakdown Musculoskeletal: No Tenderness to Palpation of Joints or Extremities Neurological: Cranial nerves II-XII grossly intact, Neuro grossly intact Psych/Mental Status: Normal Affect, Appropriate Patient seen and examined prior to discharge. Physical assessment as noted above. Patient is stable for discharge with follow up recommendations as noted above. This patient was seen by NIXON Perez under the supervision of Dr. Sanchez. - Physical Exam Vital Signs Temp Pulse Resp BP Pulse Ox 98.0 F 57 L 18 133/84 H 100 09/11/18 07:58 09/11/18 09:00 09/11/18 07:58 09/11/18 07:58 09/11/18 07:58 Oxygen Delivery Method Room Air Weight: 171 lb 15.369 oz Body Mass Index (BMI) 23.9 Intake and Output for Last 24 Hours 09/09/18 09/10/18 09/11/18 23:59 23:59 23:59 Intake Total 480 / 480 480 / 480 Balance 480 / 480 480 / 480 Microbiology Past 72 Hours 09/10/18 16:10 Stool Occult Blood (DANAE) - Final Stool Laboratory Tests Past 24 Hrs 09/10/18 09/10/18 09/10/18 16:00 16:00 16:00 WBC 11.9 H RBC 3.45 L Hgb 9.3 L Hct 29.2 L MCV 84.6 MCH 27.0 MCHC 31.8 L RDW 18.5 H RDW Differential 56.7 H Plt Count 232 MPV 9.9 Immature Gran % (Auto) 0.200 Neut % (Auto) 84.9 H Lymph % (Auto) 5.6 L [place] % (Auto) 5.6 Eos % (Auto) 3.6 Baso % (Auto) 0.1 Absolute Neuts (auto) 10.1 H Absolute Lymphs (auto) 0.66 L Total Counted Not Reportable PT 70.9 H INR 8.3 H* Sodium 136 Potassium 4.7 Chloride 103 Carbon Dioxide 28.0 Anion Gap 5 BUN 19 H Creatinine 1.04 Estim Creat Clear Calc 56.31 Est GFR (MDRD) Af Amer 87 Est GFR (MDRD) Non-Af 72 BUN/Creatinine Ratio 18.3 Glucose 155 H Calcium 8.7 Troponin I 0.032 09/10/18 09/10/18 09/11/18 19:30 22:15 05:25 WBC 12.1 H RBC 3.37 L Hgb 9.1 L Hct 28.6 L MCV 84.9 MCH 27.0 MCHC 31.8 L RDW 18.4 H RDW Differential 56.8 H Plt Count 246 MPV 10.0 Immature Gran % (Auto) 0.200 Neut % (Auto) 83.4 H Lymph % (Auto) 5.3 L [place] % (Auto) 7.0 Eos % (Auto) 3.9 Baso % (Auto) 0.2 Absolute Neuts (auto) 10.1 H Absolute Lymphs (auto) 0.64 L Total Counted Not Reportable PT INR Sodium Potassium Chloride Carbon Dioxide Anion Gap BUN Creatinine Estim Creat Clear Calc Est GFR (MDRD) Af Amer Est GFR (MDRD) Non-Af BUN/Creatinine Ratio Glucose Calcium Troponin I 0.037 0.037 09/11/18 09/11/18 05:25 05:25 WBC RBC Hgb Hct MCV MCH MCHC RDW RDW Differential Plt Count MPV Immature Gran % (Auto) Neut % (Auto) Lymph % (Auto) [place] % (Auto) Eos % (Auto) Baso % (Auto) Absolute Neuts (auto) Absolute Lymphs (auto) Total Counted PT 67.0 H INR 7.8 H* Sodium 141 Potassium 4.1 Chloride 106 Carbon Dioxide 27.0 Anion Gap 8 BUN 17 Creatinine 0.84 Estim Creat Clear Calc 67.59 Est GFR (MDRD) Af Amer 112 Est GFR (MDRD) Non-Af 92 BUN/Creatinine Ratio 20.2 H Glucose 96 Calcium 8.5 Troponin I POC Glucose 09/11/18 09/11/18 09/10/18 10:58 06:46 21:26 POC Glucose 132 H 82 148 H Discharge Diet: Low fat/ Low Cholesterol Discharge Activity: Return to Normal Activity Call your doctor if you observe: Shortness of breath, Dizziness, Fainting spells, Chest pain Home Medications: Medications to take at Discharge Aspirin [Aspirin, Baby] 81 mg PO DAILY 12/31/12 Hydrochlorothiazide 25 mg PO DAILY 12/31/12 Metoprolol Tartrate [Lopressor (beta judy)] 50 mg PO BID 12/31/12 Tamsulosin HCl [Flomax] 0.4 mg PO DAILY 12/31/12 Folic Acid 1 mg PO DAILY 09/16/16 Methotrexate 12.5 tab PO [place] 09/16/16 potassium chloride ER 20 mEq tablet,extended release(part/cryst) 20 meq PO DAILY 90 Days #270 04/11/17 Glimepiride [Amaryl] 4 mg PO DAILY 10/20/17 L.acidophil,salivari-Bifido bifidum-Strep thermoph 175 mg capsule 1 cap PO DAILY 03/14/18 Furosemide [Lasix] 40 mg PO MOWEFR 09/10/18 Insulin Glargine [Lantus SoloStar Pen] 15 units SC DAILY 09/10/18 Lisinopril [Zestril] 40 mg PO DAILY 09/10/18 Ferrous Sulfate 325 mg PO DAILY #30 tab 09/11/18 Polyethylene Glycol 3350 [Miralax] 17 gm PO DAILY #30 packet 09/11/18 Following Prescrptions Were Given to Patient: Ferrous Sulfate 325 mg PO DAILY #30 tab Polyethylene Glycol 3350 [Miralax] 17 gm PO DAILY #30 packet Primary Care Physician: Kayleen Meyer MD [Primary Care Provider] - Please follow up with your Primary Care Physician in: 09/13/18 for INR check and follow up, call for appt Disposition: Home Minutes spent on discharge:: 35 Patient Condition:: Stable Medical Necessity - Tobacco Use Smoking Status: Never smoker Meaningful Use Info Meaningful Use Diagnoses (Choose all that apply): None applicable
--- NOTE | 2018-09-11 14:45 | CASEMGMT ---
Therapy does not recommend HHC at this time but does believe that pt needs a walker to ambulate. Per , pt does have/use walker at home. states no need for HHC at this time and pt states that he feels that his arm strength is 'a lot better.' Pt/family voice no further questions/concerns/needs at this time and pt/ state no concerns with going home at this time. Nidhi DOAN CM
--- NOTE | 2018-09-11 15:17 | CHAPLAIN ---
Type of Pastoral Visit _x__ Initial Visit ___ Follow-up Visit ___ On-call Visit ___ General Patient Visit ___ Spiritual Assessment ___ Family Conference ___ Bereavement ___ Rapid Response ___ Code Blue ___ Other (describe below) Pastoral Care Referral From _x__ Patient ___ Family ___ Nurse ___ Physician ___ Cafe Manager ___ Rock Drill Operator ___ Other (describe below) Sacrament/Intervention _x__ Active listening ___ Anointing ___ Hinduism ___ Bereavement ___ Communion ___ Aditi exploration ___ ___ Life review _x__ Prayer ___ Reconciliation ___ Sacrament of Sick _x__ Supportive presence ___ Wedding ___ Other (describe below) Pastoral Comments
== END 2018-09-11 11:45 | disposition home or self-care (01) ==
LOC: ED 16:15 → PCU 17:14
PROVIDERS: Admitting Provider Internal Medicine; Emergency Provider Emergency Medicine; Family Provider Family Medicine; PCP Family Medicine; Visit Provider Internal Medicine
DX: R07.89 Other chest pain (principal); D50.9 Iron deficiency anemia, unspecified; I48.2 Chronic atrial fibrillation; N40.0 Benign prostatic hyperplasia without lower urinary tract symptoms; M06.9 Rheumatoid arthritis, unspecified; E11.9 Type 2 diabetes mellitus without complications; I10 Essential (primary) hypertension; Z86.73 Personal history of transient ischemic attack (TIA), and cerebral infarction without residual deficits; R53.1 Weakness; Z79.01 Long term (current) use of anticoagulants; Z79.899 Other long term (current) drug therapy; Z79.4 Long term (current) use of insulin; I45.10 Unspecified right bundle-branch block; R94.31 Abnormal electrocardiogram [ECG] [EKG]; I08.3 Combined rheumatic disorders of mitral, aortic and tricuspid valves; D68.9 Coagulation defect, unspecified; K30 Functional dyspepsia; R79.89 Other specified abnormal findings of blood chemistry
CPT/HCPCS: 36415; 71045; 80048; 82274; 82728; 82962; 83540; 84484; 85025; 85045; 85610; 93005; 93306; 96365; 97162; 97166; 97802; 99218; 99285; J1756; A4216; G0378

== ENCOUNTER 2018-09-23 19:28 | Emergency (ER) | payer MEDICARE, SELFPAY ==
[2018-09-10 17:47] VITALS: BMI 23.9
[2018-09-23 19:30] VITALS: BP 140/69; PULSE 91; RESP 21; TEMP 36.9; O2SAT 98; BMI 25.2
[2018-09-23 19:41] LABS: Bedside Glucose 67 mg/dL (70-110)
[2018-09-23 20:39] LABS: ALB/GLOB Ratio 0.5 RATIO (0.9-2.4); AST(SGOT) 54 U/L (15-37); Alanine Aminotransfer ALT/SGPT 40 U/L (16-61); Albumin, Serum 2.3 g/dL (3.2-5.0); Alkaline Phosphatase 314 U/L (45-117); Anion Gap 6 (5-15); BUN 16 mg/dL (7-18); BUN/Creat Ratio 16.9 RATIO (10-20); Calcium,Total 8.3 mg/dL (8.5-10.1); Chloride 102 mmol/L (98-107); Creatinine, Serum 0.94 mg/dL (0.70-1.30); EST Glomerular Filtration Rate 81 mL/min (>60); Est Glom Filt Rate - Afr Amer 98 mL/min (>60); Globulin 4.2 g/dL (2.2-4.2); Glucose 89 mg/dL (74-106); Potassium 3.7 mmol/L (3.5-5.1); Protein, Total 6.5 g/dL (6.4-8.2); Sodium Level 136 mmol/L (136-145)
[2018-09-23 20:51] LABS: Absolute Lymphocyte Count 0.38 X10^3/ul (0.83-4.51); Absolute Neutrophil Count 12.2 X10^3/uL (2.0-7.7); Basophil# 0.01 X10^3/uL; Basophil% 0.1 % (0-1); Differential Indicated SCAN CRITERIA MET; Eosinophil# 0.24 X10^3/uL; Eosinophils% 1.8 % (0-5); Hematocrit 27.8 % (40-54); Hemoglobin 8.8 g/dl (13.0-16.5); Lymphocyte # 0.38 X10^3/ul (4.0); Lymphocyte % 2.8 % (19-41); Mean Corp Hgb Conc 31.7 g/gl (32-36); Mean Corpuscular Hgb 26.3 pg (27.0-32.0); Mean Corpuscular Volume 83.2 fL (80-94); Mean Platelet Vol. 9.3 fl (6.2-12.0); Monocyte# 0.56 X10^3/uL; Monocyte% 4.2 % (0-10); Neutrophil # 12.19 X10^3/uL (2.7-7.7); POSITIVE COUNT NO; POSITIVE DIFFERENTIAL YES; POSITIVE MORPHOLOGY NO; Platelet Count 243 K/mm3 (150-450); RBC Distribution Width CV 19.2 % (11.6-14.6); RBC Distribution Width SD 58.8 fl (35.1-43.9); Red Blood Count 3.34 M/mm3 (4.6-6.2); White Blood Count 13.4 K/mm3 (4.4-11.0)
[2018-09-23 21:07] LABS: Anisocytosis 1+; Differential Comment SCANNED; Hypochromasia 1+
[2018-09-23 22:10] LABS: Bedside Glucose 98 mg/dL (70-110)
--- NOTE | 2018-09-23 22:15 | ED.VISSUMM ---
- ER Visit Summary Date of Service: 09/23/18 Chief Complaint: Low blood sugar History of Present Illness: The patient is a 83 M presents to the emergency department with low blood sugar. The patient was recently hospitalized for chest pain. His anticoagulants were changed to Eliquis. He was recently started on Lantus for his hyperglycemia. He states that since that, his blood sugar has been more difficult to control. Over the past week, he has had some very tight control with his highest being 120. Today, he had 2 low blood sugars in the 40s. This resolved for glucose. His brought him in for further evaluation. He denies any other symptoms. He denies any infectious symptoms. He states otherwise, has been in his normal state of health. Physical Examination: Vital signs reviewed General: Well-nourished, well-developed Head: Normocephalic, atraumatic Eyes: Pupils equal and reactive, extraocular muscles intact Neck, supple, no lymphadenopathy Heart: Regular rate and rhythm Respiratory: No distress, clear bilaterally Abdomen: Soft, nontender, nondistended, no peritoneal signs Back: Nontender Extremities: Nontender, no edema, no cords Skin: Normal color no rash Neuro: Alert and oriented, no focal or lateralizing deficits Test Results: [] Emergency Department Course and Treatment: The actually had his blood sugars. Over the past 2 days has been very tightly controlled. I would argue that this may be too tightly controlled given his age and other comorbidities. The patient was given fluids and was able to eat. His blood sugar was unremarkable with 2 separate checks. His renal function is normal. He is on a long-acting medication, but he has normal renal function. I am going to have him half his Lantus at least until his appetite has increased. At this point, I do feel that he is safe for outpatient therapy and the agrees. Treatment Plan: [] Disposition: Discharge Impression: 1. Hypoglycemia This note was generated with [employer] dictation software. It may contain incorrect words, spelling, and punctuation that were not noted in review of the chart prior to signing ED Disposition - Plan for ED Patient: Disposition: Home or Assisted Living Instructions: Diabetic Insulin Reaction Referrals: Kayleen Meyer MD [Primary Care Provider] -
[2018-09-23 22:39] VITALS: BP 149/98; PULSE 73; RESP 22; O2SAT 96
== END 2018-09-23 22:41 | disposition home or self-care (01) ==
LOC: ED 19:56
PROVIDERS: Emergency Provider Emergency Medicine; Family Provider Family Medicine; PCP Family Medicine
DX: E11.649 Type 2 diabetes mellitus with hypoglycemia without coma (principal); I10 Essential (primary) hypertension; E78.00 Pure hypercholesterolemia, unspecified; I25.10 Atherosclerotic heart disease of native coronary artery without angina pectoris; Z87.891 Personal history of nicotine dependence
CPT/HCPCS: 80053; 82962; 85025; 99285; J7030; J7040; A4216

== ENCOUNTER → 2018-10-01 17:37 | Outpatient (CLI) | payer MEDICARE, SELFPAY ==
[2018-09-23 19:30] VITALS: BMI 25.2
--- NOTE | 2018-10-01 17:56 | CT_ITS ---
STUDY: CT ABDOMEN AND PELVIS WITH CONTRAST REASON FOR EXAM: Male, 83 years old. DIFFUSE ABDOMEN PAIN X 5-6 DAYS,WEAKNESS RADIATION DOSAGE (If Supplied By Facility): CTDIvol = ( 20.78 ) mGy, DLP = ( 2031.73 ) mGycm TECHNIQUE: Transaxial images were obtained from the dome of the diaphragm to the symphysis pubis with oral contrast. 100ML IV/Oral Isovue 300 was administered. Sagittal and coronal images were reconstructed. Individualized dose optimization techniques were used for this CT. COMPARISON: None. FINDINGS: Limited views through the lower chest show small right pleural effusion and very small left pleural effusion. Atelectasis or scarring seen in both lung bases with calcified granulomas. Moderate cardiomegaly. Small pericardial effusion. There is hepatomegaly. The liver is heterogeneous. Widespread extensive masses are seen throughout the liver as much as 9.2 cm consistent with widespread metastatic disease in all segments. Gallbladder is not seen. Heterogeneous pancreas especially in the pancreatic head. Neoplastic mass is possible. Findings could all represent pancreatic cancer metastatic to the liver. There is pancreatic duct enlargement and cystic changes throughout the pancreas. Mild splenomegaly with numerous calcified granulomas. No acute abnormality of the kidneys. No stones. No hydronephrosis. Symmetric contrast enhancement. Bilateral renal cysts. Largest is of the left lower pole and measures 4.2 cm. No dilated loops of bowel or evidence for obstruction. Rectosigmoid is not opacified. There is diverticulosis. Cannot exclude sigmoid and rectal wall thickening. There is diffuse atherosclerotic calcification of the abdominal aorta, without a demonstrated aneurysm. Normal inferior vena cava. Normal retroperitoneum. Normal urinary bladder. Small amount of free fluid in the pelvis. There is a small left inguinal hernia. There are degenerative changes throughout the bones. No definite focal destructive lesions. CT/Abdomen/Pelvis WITH Contrast IMPRESSION: Bilateral pleural effusions. Extensive metastatic disease throughout the liver. Biopsy is recommended. Diffusely abnormal pancreas especially the pancreatic head, and neoplasm is possible. Cannot exclude thickening of the sigmoid colon or rectum. Electronically Signed: Ravi Hammer MD at 20:42 EDT , Service support ,
== END ==
PROVIDERS: Family Provider Family Medicine; PCP Family Medicine; Referring Provider Family Medicine; Visit Provider Family Medicine
DX: R10.84 Generalized abdominal pain (principal)
CPT/HCPCS: 74177; Q9967; A4216